=== PATIENT | female | born 1935 | race Caucasian/White ===

== ENCOUNTER 2020-02-23 16:07 | Emergency (ER) | payer OTHER ==
[~2020-02-23] VITALS: Ht 152.4 cm; Wt 58.5 kg
[~2020-02-23 16:07] MED LIST: ALBIPROI INH; ALBU90OI6 INH; ALBU90OI61 INH; ALEN35 PO; ALEN70; ARTHRITIS PAIN57 GM TOP; ASPI81CH PO; ASPI81EC; ASPI81EC PO; ATOR10; ATOR10 PO; AZIT250 PO; BECL40OI INH; BENZ100A PO; BUDE.25 INH; CALCIUM PO; CEPH500 PO; CHOL10002 PO; CIPR500 PO; CITA20 PO; CLAR500 PO; COMBIVENT RESPIM4 GM INH; Carafate; DIGO.125; DIOVAN PO; DOXA2; DOXA2 PO; Duoneb 2.5-0.5 M3 ML INH; ERGO400 PO; ERGO50000 PO; ESCI10 PO; EZET10; EZET10 PO; FAMO20 PO; FAMO40 PO; FEXO60 PO; FLUT.05NI; HYDACE25S PR; HYDACE5 PO; HYDR1TAB94 PO; IBUP600; IBUP600 PO; LAVAP17G PO; LENZAPATCH 4%-1 EACH TOP; LEVFLO500 PO; LEVSOD100; LEVSOD88 PO; LISI20 PO; MECL25 PO; MULVITA PO; Miralax17 GM PO; Multivitamin1 EAC1 PO; NITR100CA PO; ONDA8ODT MM; OXYB5; OXYB5 PO; PANT40 PO; POLY17UD PO; PRED20 PO; Perforomis20 MCG/2 M INH; Prednisone20 MG PO; QUET25 PO; QUIN325; RANI150; RXALBOI INH; RXONDA4ODT MM; SENN187 PO; SUCR1; SUCR1 PO; SUCR1SU PO; SULTRIDS PO; Senna S Tablet1 EACH PO; VALS80; VALS80 PO; VERA120ERB PO; VERA180ER; VERA180ER PO; VERA180ERB PO; VITAMIN C PO; Zithromax250 MG PO
[2020-02-23 16:46] LABS: BASOPHILS PERCENT AUTO 1 % (0-2); EOSINOPHILS ABSOLUTE AUTO 0.81 K/mm3 (0.00-0.68); EOSINOPHILS PERCENT AUTO 5 % (0-6); Hematocrit 43.4 % (33.0-51.0); Hemoglobin 13.5 g/dL (11.5-16.0); IMMATURE GRAN ABSOLUTE AUTO 0.55 K/mm3 (0.00-0.10); IMMATURE GRAN PERCENT AUTO 3 % (0-1); LYMPHOCYTES ABSOLUTE AUTO 3.17 K/mm3 (0.84-5.20); LYMPHOCYTES PERCENT AUTO 18 % (21-46); MONOCYTES ABSOLUTE AUTO 0.21 K/mm3 (0.16-1.47); MONOCYTES PERCENT AUTO 1 % (4-13); Mean Corpuscular HGB 30.7 pg (26.0-34.0); Mean Corpuscular HGB Conc 31.1 g/dL (31.5-36.5); Mean Corpuscular Volume 99 fL (80-100); NEUTROPHILS ABSOLUTE AUTO 13.17 K/mm3 (1.96-9.15); NEUTROPHILS PERCENT AUTO 73 % (41-73); Platelet Count 275 K/mm3 (150-400); RDW Coefficient Variation 13.3 % (11.7-14.2); RDW Standard Deviation 48.6 fL (35.1-46.3); White Blood Cell Count 18.01 K/mm3 (4.00-11.30)
[2020-02-23 17:13] LABS: Albumin, Blood 3.7 g/dL (3.4-5.0); Bilirubin, Total 0.3 mg/dL (0.1-1.0); Bun/Creatinine Ratio 13.7 (12.0-20.0); Calcium, Blood 8.8 mg/dL (8.5-10.1); Creatinine, Blood 0.95 mg/dL (0.40-1.00); Globulin, Blood 3.6 g/dL (2.2-4.0); Potassium, Blood 4.4 mmol/L (3.5-5.5); Total Protein, Blood 7.3 g/dL (6.4-8.2)
[2020-02-23 19:01] LABS: Source, Urine Clean Catch
[2020-02-23 19:20] LABS: Bilirubin, Urine Neg (Neg); Blood, Urine 1+ (Neg); Glucose Qualitative, Urine Neg (Neg); Ketones, Urine Neg (Neg); Leukocyte Esterase, Urine 3+ (Neg); Nitrite, Urine Neg (Neg); Protein, Urine Neg (Neg); Urobilinogen, Urine NORM (Normal)
[2020-02-23 19:27] LABS: Appearance, Urine Clear (Clear); Color, Urine Yellow (P-Yellow)
[2020-02-23 19:28] LABS: Bacteria Mod /hpf; Squamous Epithelial Cells Mod /hpf (Few); White Blood Cells, Urine 25-50 /hpf (0-5)
[2020-02-23] MEDS ORDERED: CEFD300 PO (19:39)
== END 2020-02-23 20:11 | disposition home or self-care (01) ==
LOC: ER 16:07
PROVIDERS: Emergency Medicine
DX: S00.11XA Contusion of right eyelid and periocular area, initial encounter (principal); S80.11XA Contusion of right lower leg, initial encounter; I12.9 Hypertensive chronic kidney disease with stage 1 through stage 4 chronic kidney disease, or unspecified chronic kidney disease; N18.9 Chronic kidney disease, unspecified; J44.9 Chronic obstructive pulmonary disease, unspecified; I25.10 Atherosclerotic heart disease of native coronary artery without angina pectoris; E03.9 Hypothyroidism, unspecified; F32.9 Major depressive disorder, single episode, unspecified; Z86.73 Personal history of transient ischemic attack (TIA), and cerebral infarction without residual deficits; Z95.5 Presence of coronary angioplasty implant and graft; Z88.8 Allergy status to other drugs, medicaments and biological substances; Z79.899 Other long term (current) drug therapy; Z79.82 Long term (current) use of aspirin; Z87.891 Personal history of nicotine dependence; W01.0XXA Fall on same level from slipping, tripping and stumbling without subsequent striking against object, initial encounter
CPT/HCPCS: 36415; 70450; 73590; 80053; 81001; 84484; 85025; 87086; 93005; 93010; 96374; 99284-25; J0696

== ENCOUNTER 2020-04-19 21:14 | Observation (INO) | payer OTHER ==
[~2020-04-19] VITALS: Ht 152.4 cm; Wt 53.3 kg
[~2020-04-19 21:14] MED LIST changes: +CEFD300 PO; +EUTHYROX88 MCG PO; -LAVAP17G PO; +MIRALAX17 GM PO
[2020-04-19 22:35] LABS: Hematocrit 39.2 % (33.0-51.0); Hemoglobin 12.5 g/dL (11.5-16.0); Mean Corpuscular HGB 30.8 pg (26.0-34.0); Mean Corpuscular HGB Conc 31.9 g/dL (31.5-36.5); Mean Corpuscular Volume 97 fL (80-100); Mean Platelet Volume 9.7 fL (9.1-12.4); Platelet Count 350 K/mm3 (150-400); RDW Coefficient Variation 13.6 % (11.7-14.2); RDW Standard Deviation 48.9 fL (35.1-46.3); Red Blood Cell Count 4.06 M/mm3 (3.80-5.20)
[2020-04-19 22:37] LABS: White Blood Cell Count 54.63 K/mm3 (4.00-11.30)
[2020-04-19 22:52] LABS: BAND PERCENT MAN 7 % (0-8); BASOPHILS PERCENT MAN 0 % (0-2); EOSINOPHILS ABSOLUTE MAN 1.09 K/mm3 (0.00-0.68); EOSINOPHILS PERCENT MAN 2 % (0-6); LYMPHOCYTES ABSOLUTE MAN 5.46 K/mm3 (0.84-5.20); LYMPHOCYTES PERCENT MAN 10 % (21-46); METAMYELOCYTE ABSOLUTE MAN 1.63 K/mm3 (0.00-0.00); METAMYELOCYTE PERCENT MAN 3 % (0-0); MONOCYTES PERCENT MAN 0 % (4-13); MYELOCYTE ABSOLUTE MAN 2.18 K/mm3 (0.00-0.00); MYELOCYTE PERCENT MAN 4 % (0-0); NEUTROPHILS ABSOLUTE MAN 44.25 K/mm3 (1.96-9.15); SEG NEUTROPHILS PERCENT MAN 74 % (41-73); TOTAL CELLS COUNTED 100
[2020-04-19 22:53] LABS: Alanine Aminotransfer (ALT/SGP 19 U/L (12-78); Albumin, Blood 3.5 g/dL (3.4-5.0); Albumin/Globulin Ratio 1.1 (0.8-1.8); Alk Phos 69 U/L (50-136); Anion Gap 11 mmol/L (6-16); Aspartate Aminotrans (AST/SGOT 20 U/L (12-37); Bilirubin, Total 0.4 mg/dL (0.1-1.0); Blood Urea Nitrogen 14 mg/dL (8-24); Bun/Creatinine Ratio 8.1 (12.0-20.0); CO2, Blood 24 mmol/L (21-32); Calcium, Blood 8.9 mg/dL (8.5-10.1); Chloride, Blood 102 mmol/L (98-108); Creatinine, Blood 1.72 mg/dL (0.40-1.00); Globulin, Blood 3.1 g/dL (2.2-4.0); Glomerular Filtration Rate 30 (60-); Glucose, Blood 118 mg/dL (70-99); Potassium, Blood 3.8 mmol/L (3.5-5.5); Sodium, Blood 137 mmol/L (136-145); Total Protein, Blood 6.6 g/dL (6.4-8.2)
[2020-04-19 23:33] LABS: Source, Urine Clean Catch
[2020-04-19 23:35] LABS: Bilirubin, Urine Neg (Neg); Blood, Urine Neg (Neg); Glucose Qualitative, Urine Neg (Neg); Ketones, Urine Neg (Neg); Leukocyte Esterase, Urine Neg (Neg); Nitrite, Urine Neg (Neg); Protein, Urine Neg (Neg); Urobilinogen, Urine NORM (Normal)
[2020-04-19 23:40] LABS: Appearance, Urine Clear (Clear); Color, Urine Yellow (P-Yellow)
[2020-04-20 00:11] LABS: C-REACTIVE PROTEIN, EXT RANGE <0.290 mg/dL (0.000-0.300)
[2020-04-20 01:39] LABS: International Normalized Ratio 1.08; Prothrombin Time Results 11.5 Sec (9.7-11.5)
--- NOTE | 2020-04-20 03:39 | NUR ---
PATIENT BEING ADMITTED TO THE FLOOR FOR ISCHEMIC FINGER, KIDNEY FAILURE. SHE ARRIVED VIA GURNEY, TRANSFERRED WITH SLIDING TO BED. OPAL IS ALERT AND ORIENTED X4. IROQUOIS W/ BILATERAL HEARING AIDS. SHE PLACED THEM IN HER BAG. SHE CAME INTO THE ER TONIGHT FOR PAIN IN HER LEFT PINKY FINGER. STATES IT HAS BEEN HURTING FOR 2-3 DAYS, THERE IS DISCOLORATION FROM THE SECOND KNUCKLE UP, PURPLISH RED. TENDER TO TOUCH, UNABLE TO BEND HER FINGER, THERE IS SWELLING. UPON ARRIVAL SHE WAS FOUND TO HYPOTENSIVE 74/31. AFTER HYDRATION HER BLOOD PRESSSURE CAME UP. WBC WAS 54.63, LACTIC ACID 1.1. AFEBRILE, VS WNL ONCE GOT TO THE FLOOR. LUNGS ARE CLEAR. HR REGULAR SINUS WITH BBB RUNNING IN 60'S PER TELEMETRY. SKIN PWD, NO BREAKDOWN. BM YESTERDAY. STATES BEEN URINATING WELL. NO UTI. IV FLUIDS RUNNING AT 75ML/HR. HEPARIN RUNNING 13.3ML/HR. ORIENTED TO ROOM AND CALL LIGHT. ADMISSION COMPLETED. WILL CONTINUE TO MONITOR.
--- NOTE | 2020-04-20 05:28 | NUR ---
SHIFT SUMMARY: MAYELIN WAS ADMITTED FOR RENAL FAILURE AND ISCHEMIC FINGER. AOX3, COOPERATIVE. 1 ASSIST WITH WALKER. LEFT PINKY FINGER SWOLLEN AND PURPLE BLUE FROM KNUCKLE AND UP. NO NUMBNESS. NOT ABLE TO BEND. PAIN MANAGEABLE. LS CLEAR T/O. HR SINUS W/ BBB RUNNING IN THE 60'S PER TELE. IV FLUIDS RUNNING AT 75ML/HR. CONTIENT OF URINE AND BOWEL. LAST BM YESTERDAY. LABS: CRITIAL WBC ON ADMIT 54.63, LACTIC 1.1; GFR 30, BUN/CREATINE 8.1; CREATINE 1.72. HEPARIN INFUSING AT 13.3ML/HR FOR POSSIBLE BLOOD CLOT. SETTLED INTO ROOM, SLEPT REST OF SHIFT. WILL CONTINUE TO PROVIDE CARE TILL DAY SHIFT ARRIVES.
[2020-04-20 08:29] LABS: Hematocrit 34.1 % (33.0-51.0); Hemoglobin 10.9 g/dL (11.5-16.0); Mean Corpuscular Volume 97 fL (80-100); Mean Platelet Volume 9.8 fL (9.1-12.4); Platelet Count 298 K/mm3 (150-400); RDW Coefficient Variation 13.8 % (11.7-14.2); RDW Standard Deviation 49.1 fL (35.1-46.3); Red Blood Cell Count 3.52 M/mm3 (3.80-5.20)
[2020-04-20 08:38] LABS: White Blood Cell Count 56.34 K/mm3 (4.00-11.30)
[2020-04-20 09:27] LABS: BAND PERCENT MAN 5 % (0-8); BASOPHILS PERCENT MAN 0 % (0-2); EOSINOPHILS ABSOLUTE MAN 1.12 K/mm3 (0.00-0.68); EOSINOPHILS PERCENT MAN 2 % (0-6); LYMPHOCYTES ABSOLUTE MAN 5.07 K/mm3 (0.84-5.20); LYMPHOCYTES PERCENT MAN 9 % (21-46); METAMYELOCYTE ABSOLUTE MAN 1.12 K/mm3 (0.00-0.00); METAMYELOCYTE PERCENT MAN 2 % (0-0); MONOCYTES ABSOLUTE MAN 0.56 K/mm3 (0.16-1.47); MONOCYTES PERCENT MAN 1 % (4-13); MYELOCYTE ABSOLUTE MAN 2.25 K/mm3 (0.00-0.00); MYELOCYTE PERCENT MAN 4 % (0-0); NEUTROPHILS ABSOLUTE MAN 46.19 K/mm3 (1.96-9.15); SEG NEUTROPHILS PERCENT MAN 77 % (41-73); TOTAL CELLS COUNTED 100
--- NOTE | 2020-04-20 11:08 | NUR ---
Echocardiogram completed.
[2020-04-20 11:16] LABS: Hematocrit 35.1 % (33.0-51.0); Hemoglobin 11.2 g/dL (11.5-16.0); Mean Corpuscular HGB 31.1 pg (26.0-34.0); Mean Corpuscular HGB Conc 31.9 g/dL (31.5-36.5); Mean Corpuscular Volume 98 fL (80-100); Mean Platelet Volume 9.7 fL (9.1-12.4); Platelet Count 298 K/mm3 (150-400); RDW Coefficient Variation 13.5 % (11.7-14.2); RDW Standard Deviation 48.9 fL (35.1-46.3)
[2020-04-20 11:26] LABS: White Blood Cell Count 55.18 K/mm3 (4.00-11.30)
[2020-04-20 11:33] LABS: Albumin, Blood 2.9 g/dL (3.4-5.0); Bilirubin, Total 0.3 mg/dL (0.1-1.0); Bun/Creatinine Ratio 9.3 (12.0-20.0); Calcium, Blood 8.3 mg/dL (8.5-10.1); Creatinine, Blood 1.4 mg/dL (0.40-1.00); Globulin, Blood 2.9 g/dL (2.2-4.0); Total Protein, Blood 5.8 g/dL (6.4-8.2)
[2020-04-20 12:06] LABS: BAND PERCENT MAN 7 % (0-8); BASOPHILS PERCENT MAN 0 % (0-2); EOSINOPHILS ABSOLUTE MAN 0.55 K/mm3 (0.00-0.68); EOSINOPHILS PERCENT MAN 1 % (0-6); LYMPHOCYTES ABSOLUTE MAN 1.65 K/mm3 (0.84-5.20); LYMPHOCYTES PERCENT MAN 3 % (21-46); METAMYELOCYTE ABSOLUTE MAN 1.65 K/mm3 (0.00-0.00); METAMYELOCYTE PERCENT MAN 3 % (0-0); MONOCYTES PERCENT MAN 0 % (4-13); MYELOCYTE PERCENT MAN 2 % (0-0); NEUTROPHILS ABSOLUTE MAN 50.21 K/mm3 (1.96-9.15); SEG NEUTROPHILS PERCENT MAN 84 % (41-73); TOTAL CELLS COUNTED 100
--- NOTE | 2020-04-20 12:29 | NUR ---
Patient is lying in bed and alert. Patient tells me about her family, her caridad (patient attend [facility]) and about her medical history. Patient tells me that she just wants to get well quickly because she wants to go home (patient lives with her son, Hussein). Patient shows no evidnce of spiritual distress. I listen empathically and provide pastoral career and guidance counselor and prayer. Patient responds well and shows signs of an elevated mood. I will continue to remain available to patient and family.
--- NOTE | 2020-04-20 17:54 | NUR ---
PATIENT A/OX4, UP WITH SBA TO RESTROOM. SWELLING AND PAIN TO L PINKY FINGER HAS IMPROVED THIS SHIFT. NS HAS BEEN D/C'D. CONTINUES ON HEPARIN GTT, NO ADJUSTMENTS NEEDED THIS SHIFT. VSS, ON RA. ECHO COMPLETED TODAY, EF OF 60-65%. US OF L HAND DID NOT SHOW AN ABCESS. SPOKE WITH CAREGIVER FEDERICO AND UPDATED ON PATIENT CONDITION. PATIENT TOLERATING REGULAR DIET. CALM AND COOPERATIVE WITH CARE.
[2020-04-21 05:03] LABS: Hemoglobin 11.2 g/dL (11.5-16.0); Mean Corpuscular Volume 97 fL (80-100); Platelet Count 316 K/mm3 (150-400); RDW Coefficient Variation 13.8 % (11.7-14.2); RDW Standard Deviation 49.5 fL (35.1-46.3); Red Blood Cell Count 3.61 M/mm3 (3.80-5.20)
[2020-04-21 05:21] LABS: White Blood Cell Count 53.23 K/mm3 (4.00-11.30)
[2020-04-21 05:34] LABS: Bun/Creatinine Ratio 9.8 (12.0-20.0); Calcium, Blood 8.7 mg/dL (8.5-10.1); Creatinine, Blood 1.32 mg/dL (0.40-1.00); Potassium, Blood 4.1 mmol/L (3.5-5.5)
[2020-04-21 05:40] LABS: BAND PERCENT MAN 6 % (0-8); BASOPHILS PERCENT MAN 0 % (0-2); EOSINOPHILS ABSOLUTE MAN 1.06 K/mm3 (0.00-0.68); EOSINOPHILS PERCENT MAN 2 % (0-6); LYMPHOCYTES ABSOLUTE MAN 3.72 K/mm3 (0.84-5.20); LYMPHOCYTES PERCENT MAN 7 % (21-46); METAMYELOCYTE ABSOLUTE MAN 2.12 K/mm3 (0.00-0.00); METAMYELOCYTE PERCENT MAN 4 % (0-0); MONOCYTES ABSOLUTE MAN 0.53 K/mm3 (0.16-1.47); MONOCYTES PERCENT MAN 1 % (4-13); MYELOCYTE ABSOLUTE MAN 1.06 K/mm3 (0.00-0.00); MYELOCYTE PERCENT MAN 2 % (0-0); NEUTROPHILS ABSOLUTE MAN 44.71 K/mm3 (1.96-9.15); SEG NEUTROPHILS PERCENT MAN 78 % (41-73); TOTAL CELLS COUNTED 100
--- NOTE | 2020-04-21 06:01 | NUR ---
SHIFT SUMMARY PT IS AN 85 Y/O FEMALE, ADMITTED FOR AN ISCHEMIC L PINKY FINGER. PT IS A&O X 3, PLEASANT AND COOPERATIVE WITH CARE. VERY [place]. 1 PERSON SBA TO THE BATHROOM. L PINKY FINGER IS SWOLLEN, BUT LESS PURPLE AND LESS PAINFUL/TENDER PER PT REPORT. NO COMPLAINTS OF OTHER PAIN, NAUSEA OR SOB. PT RECEIVING CONTINUOUS HEPARIN DRIP, CURRENTLY AT 12.5 U/KG/HR, OR 12.8 ML/HR. VITAL SIGNS STABLE. PT SLEPT WELL THROUGH THE NIGHT. NO ACUTE CHANGES IN PT CONDITION NOTED. WILL CONTINUE TO MONITOR AND TREAT PER EMAR UNTIL HAND OFF TO DAY SHIFT RN.
[2020-04-21] MEDS ORDERED: AZIT250 PO (11:20)
[2020-04-21] MEDS ORDERED: Culturelle1 CAP PO (11:21)
[2020-04-21] MEDS ORDERED: CEFP200 PO (11:21)
[2020-04-21] MEDS ORDERED: ALLO100 PO (11:22)
[2020-04-21] MEDS ORDERED: COLCHICINE0.6 MG PO (11:23)
== END 2020-04-21 13:45 | disposition home or self-care (01) ==
LOC: ER 21:14 → MEDS 21:15
PROVIDERS: Internal Medicine; Physician Assistant; ADMIT Internal Medicine
DX: M79.645 Pain in left finger(s) (principal); D72.829 Elevated white blood cell count, unspecified; N17.9 Acute kidney failure, unspecified; I12.9 Hypertensive chronic kidney disease with stage 1 through stage 4 chronic kidney disease, or unspecified chronic kidney disease; N18.4 Chronic kidney disease, stage 4 (severe); I25.10 Atherosclerotic heart disease of native coronary artery without angina pectoris; E03.9 Hypothyroidism, unspecified; H91.90 Unspecified hearing loss, unspecified ear; J44.9 Chronic obstructive pulmonary disease, unspecified; F32.9 Major depressive disorder, single episode, unspecified; Z79.82 Long term (current) use of aspirin; Z79.899 Other long term (current) drug therapy; Z88.8 Allergy status to other drugs, medicaments and biological substances
CPT/HCPCS: 36415; 51701; 71045; 73140; 76882; 80048; 80053; 81003; 83605; 84145; 84550; 85025; 85610; 85651; 85730; 86140; 93005; 93010; 93306; 93931; 94640; 94760; 96361; 96365-59; 96367; 96375; 96375-59; 96376; 99285-25; A9270; A9270-GY; G0378; J0690; J1644; J2543; J3010; J7030

== ENCOUNTER 2020-08-13 12:20 | Emergency (ER) | payer OTHER ==
[~2020-08-13] VITALS: Ht 152.4 cm; Wt 53.5 kg
[~2020-08-13 12:20] MED LIST changes: +ALLO100 PO; +CEFP200 PO; +COLCHICINE0.6 MG PO; +Culturelle1 CAP PO
== END 2020-08-13 14:10 | disposition home or self-care (01) ==
LOC: ER 12:20
DX: K59.00 Constipation, unspecified (principal); J44.9 Chronic obstructive pulmonary disease, unspecified; I12.9 Hypertensive chronic kidney disease with stage 1 through stage 4 chronic kidney disease, or unspecified chronic kidney disease; N18.3 Chronic kidney disease, stage 3 (moderate); I25.10 Atherosclerotic heart disease of native coronary artery without angina pectoris; E03.9 Hypothyroidism, unspecified; F32.9 Major depressive disorder, single episode, unspecified; Z88.8 Allergy status to other drugs, medicaments and biological substances; Z79.899 Other long term (current) drug therapy; Z79.82 Long term (current) use of aspirin; Z79.51 Long term (current) use of inhaled steroids; Z87.891 Personal history of nicotine dependence
CPT/HCPCS: 99283

== ENCOUNTER 2020-08-23 09:57 | Observation (INO) | payer OTHER ==
[~2020-08-23] VITALS: Ht 152.4 cm; Wt 53.7 kg
[~2020-08-23 09:57] MED LIST changes: -ASPI81CH PO; +Aspirin EC81 MG PO; +DOCUZEN 8.6-501 EACH PO; -Senna S Tablet1 EACH PO
[2020-08-23 10:23] LABS: BASOPHILS PERCENT AUTO 1 % (0-2); EOSINOPHILS ABSOLUTE AUTO 0.54 K/mm3 (0.00-0.68); EOSINOPHILS PERCENT AUTO 6 % (0-6); Hematocrit 33.9 % (33.0-51.0); Hemoglobin 10.7 g/dL (11.5-16.0); IMMATURE GRAN ABSOLUTE AUTO 0.51 K/mm3 (0.00-0.10); IMMATURE GRAN PERCENT AUTO 6 % (0-1); LYMPHOCYTES ABSOLUTE AUTO 1.47 K/mm3 (0.84-5.20); LYMPHOCYTES PERCENT AUTO 17 % (21-46); MONOCYTES PERCENT AUTO 3 % (4-13); Mean Corpuscular HGB 33.1 pg (26.0-34.0); Mean Corpuscular HGB Conc 31.6 g/dL (31.5-36.5); Mean Corpuscular Volume 105 fL (80-100); Mean Platelet Volume 10.7 fL (9.1-12.4); NEUTROPHILS ABSOLUTE AUTO 5.99 K/mm3 (1.96-9.15); NEUTROPHILS PERCENT AUTO 67 % (41-73); Platelet Count 92 K/mm3 (150-400); RDW Coefficient Variation 22.9 % (11.7-14.2); RDW Standard Deviation 79.6 fL (35.1-46.3); Red Blood Cell Count 3.23 M/mm3 (3.80-5.20); White Blood Cell Count 8.91 K/mm3 (4.00-11.30)
[2020-08-23] MEDS ORDERED: FAMO20 PO ×2 (10:25→13:29)
[2020-08-23] MEDS ORDERED: OMEP20ER PO (10:26)
[2020-08-23] MEDS ORDERED: Hydroxyurea500 MG PO (10:27)
[2020-08-23 10:34] LABS: International Normalized Ratio 1.06; Prothrombin Time Results 11.3 Sec (9.7-11.5)
[2020-08-23 10:37] LABS: Albumin, Blood 3.8 g/dL (3.4-5.0); Albumin/Globulin Ratio 1.4 (0.8-1.8); Bilirubin, Total 0.6 mg/dL (0.1-1.0); Bun/Creatinine Ratio 16.8 (12.0-20.0); Calcium, Blood 8.4 mg/dL (8.5-10.1); Creatinine, Blood 1.13 mg/dL (0.40-1.00); Globulin, Blood 2.8 g/dL (2.2-4.0); Potassium, Blood 4.3 mmol/L (3.5-5.5); Total Protein, Blood 6.6 g/dL (6.4-8.2)
[2020-08-23] MEDS ORDERED: Citalopram HBr20 MG PO (13:31)
--- NOTE | 2020-08-23 16:22 | NUR ---
PATIENT ARRIVED TO ROOM 301 WITH 2 IV SITES, LFA AND LW, BOTH SALINE LOCKED.
--- NOTE | 2020-08-23 17:28 | NUR ---
SHE IS BEING ADMITTED TO ROOM 301 FROM THE ED. HER CAREGIVER FEDERICO CALLED TO SAY SHE IS ON HER WAY BACK IN WITH HER HEARING AIDES, DENTURES AND MEDICATION LIST. WILL SEE WHEN SHE ARRIVES. THE PATIENT HAS BEEN COMFORTABLE DENYING ANY PAIN TO ME BUT TOLD THAT SHE HAD DISCOMFORT IN BOTH RIGHT AND LEFT LOWER QUADRANTS. SHE DISCUSSED THE CONSTIPATION THAT THE CT SCAN SHOWED AND DISCUSSED HER HEMRRHOIDS WITH HER AFTER DOING A RECTAL EXAM. THERE WAS BLOOD ON HER FEDERICA LINER AND SHE HAD PASSED A SMALL AMT OF RED BLOOD IN THE TOILET WHEN SHE GOT UP TO VOID. HER URINE IS HAZY YELLOW. NEW PULL UP WITH LINER PUT ON PATIENT AFTER CLEANING HER RECTUM. SHE NOW HAS WATER AND PEPSI AT THE BEDSIDE. A FL DINNER HAS BEEN ORDERED. TELE IS NSR. VSS. SBP 157. SHE IS VERY MOBILE NO NEED FOR THE BED ALARM.
[2020-08-23] MEDS ORDERED: ASPI81CH PO (18:18)
[2020-08-23] MEDS ORDERED: BUDESONIDE0.5 MG/2 M INH (18:21)
[2020-08-23] MEDS ORDERED: PERFORMIST INH (18:32)
[2020-08-23] MEDS ORDERED: COMBIVENT RESPIM4 G1 INH (18:34)
[2020-08-23] MEDS ORDERED: IPRAT-ALBUT 0.5-3 ML INH (18:36)
[2020-08-23 21:24] LABS: Hematocrit 30.7 % (33.0-51.0); Hemoglobin 9.5 g/dL (11.5-16.0)
[2020-08-24 05:02] LABS: Hematocrit 30.7 % (33.0-51.0); Hemoglobin 9.5 g/dL (11.5-16.0); Mean Corpuscular HGB 33.2 pg (26.0-34.0); Mean Corpuscular HGB Conc 30.9 g/dL (31.5-36.5); Mean Corpuscular Volume 107 fL (80-100); RDW Coefficient Variation 23.6 % (11.7-14.2); RDW Standard Deviation 83.2 fL (35.1-46.3); Red Blood Cell Count 2.86 M/mm3 (3.80-5.20); White Blood Cell Count 9.41 K/mm3 (4.00-11.30)
[2020-08-24 05:12] LABS: Mean Platelet Volume 10.8 fL (9.1-12.4); Platelet Count 75 K/mm3 (150-400)
--- NOTE | 2020-08-24 05:55 | NUR ---
SHIFT SUMMARY PT COMPLAINED OF SLIGHT CRAMPING IN RIGHT THIGH WHEN CHANGING POSTION. K-PAD APPLIED AND MEDICATED FOR PAIN PER MAR. OTHERWISE NO ACUTE CHANGES THIS SHIFT. PT IS A&O X4, SBA. SLEPT T/O NIGHT. PT IS LAYING IN BED, NO APPARENT DISTRESS, RESPIRATIONS EVEN AND UNLABORED, EYES CLOSED. CALL LIGHT AND PERSONAL ITEMS WITHIN REACH. NO APPARENT NEEDS AT THIS TIME. WILL CONTINUE TO MONITOR UNTIL REPORT GIVEN TO DAY RN.
[2020-08-24 06:30] LABS: BAND PERCENT MAN 4 % (0-8); BASOPHILS PERCENT MAN 0 % (0-2); EOSINOPHILS ABSOLUTE MAN 0.56 K/mm3 (0.00-0.68); EOSINOPHILS PERCENT MAN 6 % (0-6); LYMPHOCYTES ABSOLUTE MAN 1.22 K/mm3 (0.84-5.20); LYMPHOCYTES PERCENT MAN 13 % (21-46); METAMYELOCYTE ABSOLUTE MAN 0.28 K/mm3 (0.00-0.00); METAMYELOCYTE PERCENT MAN 3 % (0-0); MONOCYTES ABSOLUTE MAN 0.09 K/mm3 (0.16-1.47); MONOCYTES PERCENT MAN 1 % (4-13); NEUTROPHILS ABSOLUTE MAN 7.24 K/mm3 (1.96-9.15); SEG NEUTROPHILS PERCENT MAN 73 % (41-73); TOTAL CELLS COUNTED 100
--- NOTE | 2020-08-24 15:35 | NUR ---
Patientis sitting up in bed and alert. Patient tells me about her medical issues and that she is not sure what is being done for her. She talks about her large family that lives local and about her Yazdanism caridad background and how important that both her family and caridad are to her. I listen emapthically and provide prayer. Patient started falling asleep during her own sentences so I cut my visit short and let her rest. I will continue to remain available to patient and family.
--- NOTE | 2020-08-24 16:09 | NUR ---
SHE HAD A MILD H/A THIS MORNING. SHE C/O FEELING TIRED THIS AFTERNOON. SHE SAT UP IN THE CHAIR FOR A FEW HRS MIDDAY. SHE IS IN BED NOW. HER CAREGIVER FEDERICO IS HERE VISITING HER NOW.
--- NOTE | 2020-08-24 17:57 | NUR ---
NO RECTAL BLEEDING TODAY. ANNUSOL SUPP GIVEN SECHEDULED AND MIRALAX GIVEN THIS AM. SHE HAD A SOFT BM. DIET ADVANCED AT DINNER TONIGHT TO SOFT. NO C/O ABD PAIN OR NAUSEA. SEED LABORATORY ASSISTANT GOT HER A PCP TODAY. MAYELIN HAS THE PAPERS WITH THE INFORMATION. HER CAREGIVER VISITED THIS AFTERNOON. HER 2 COMPLAINTS TODAY WERE A MILD H/A THIS AM AND FEELING TIRED THIS AFTERNOON.
--- NOTE | 2020-08-24 19:09 | NUR ---
SHE DRIPPED A SMALL AMT OF RECTAL BLOOD AFTER DINNER TONIGHT WHEN STANDING UP AFTER VOIDING.
[2020-08-25 04:44] LABS: Hematocrit 28.9 % (33.0-51.0); Hemoglobin 9.3 g/dL (11.5-16.0); Mean Corpuscular HGB 34.1 pg (26.0-34.0); Mean Corpuscular HGB Conc 32.2 g/dL (31.5-36.5); Mean Corpuscular Volume 106 fL (80-100); Mean Platelet Volume 10.7 fL (9.1-12.4); Platelet Count 71 K/mm3 (150-400); RDW Coefficient Variation 23.5 % (11.7-14.2); RDW Standard Deviation 80.2 fL (35.1-46.3); Red Blood Cell Count 2.73 M/mm3 (3.80-5.20); White Blood Cell Count 10.44 K/mm3 (4.00-11.30)
--- NOTE | 2020-08-25 04:47 | NUR ---
SHIFT SUMMARY NO ACUTE CHANGES THIS SHIFT. PT ASKED TO HAVE SCDS OFF DURING NIGHT IT HELPS HER SLEEP BETTER. SLEPT T/O THE NIGHT. NO RECTAL BLEEDING THIS SHIFT. PT IS LAYING IN BED WITH EYES CLOSED, EVEN AND UNLABORED RESPIRATIONS. NO APPARENT NEEDS OR DISTRESS AT THIS TIME. CALL LIGHT AND PERSONAL ITEMS WITHIN REACH. WILL CONTINUE TO MONITOR UNTIL REPORT GIVEN TO DAY RN.
[2020-08-25 06:45] LABS: BAND PERCENT MAN 1 % (0-8); BASOPHILS PERCENT MAN 1 % (0-2); EOSINOPHILS PERCENT MAN 2 % (0-6); LYMPHOCYTES ABSOLUTE MAN 0.62 K/mm3 (0.84-5.20); LYMPHOCYTES PERCENT MAN 6 % (21-46); METAMYELOCYTE PERCENT MAN 1 % (0-0); MONOCYTES PERCENT MAN 1 % (4-13); NEUTROPHILS ABSOLUTE MAN 9.29 K/mm3 (1.96-9.15); SEG NEUTROPHILS PERCENT MAN 88 % (41-73); TOTAL CELLS COUNTED 100
--- NOTE | 2020-08-25 07:40 | NUR ---
PT PLEASANT COOP A/O. QUITE [place]. DENIES PAIN. H/R REG, NO MURMER NOTED. NO TELE. LUNGS CLEAR, RESP EASY, UNHLABORED. ON R/A. BT X4 LAST BM YEST. VOIDS INDEPENDANT TO SBA TO BATHROOMN. BED IN LOW POSITION, CALL LITE IN REACH, CALLS APPROP. STATES NO BLEEDING TODAY. BELEIVES TO BE HEMORRHOIDS
[2020-08-25] MEDS ORDERED: FORADIL AEROLIZER (15:36)
--- NOTE | 2020-08-25 16:37 | NUR ---
PT DISCHARGE REVIEWED BY PT AND HER BLOCK HACKER, FEDERICO. IV X2 PULLED INTACT. NO TELE. PT DRESSED WITH ASST OF AIDE. BLOCK HACKER VERBALIZED UNDERSTANDING MEDS AND INST. 1630 PT WHEELED TO DOOR BY AIDE.
== END 2020-08-25 16:34 | disposition home or self-care (01) ==
LOC: ER 09:57 → MEDS 09:58
PROVIDERS: Emergency Medicine; ADMIT Internal Medicine
PROC: 30233N1 Transfusion of Nonautologous Red Blood Cells into Peripheral Vein, Percutaneous Approach (ICD-10-PCS; principal; 2020-08-23)
DX: K62.5 Hemorrhage of anus and rectum (principal); K59.09 Other constipation; I12.9 Hypertensive chronic kidney disease with stage 1 through stage 4 chronic kidney disease, or unspecified chronic kidney disease; N18.30 Chronic kidney disease, stage 3 unspecified; D63.1 Anemia in chronic kidney disease; K21.9 Gastro-esophageal reflux disease without esophagitis; C91.10 Chronic lymphocytic leukemia of B-cell type not having achieved remission; E03.9 Hypothyroidism, unspecified; J44.9 Chronic obstructive pulmonary disease, unspecified; I25.10 Atherosclerotic heart disease of native coronary artery without angina pectoris; F32.9 Major depressive disorder, single episode, unspecified; H91.90 Unspecified hearing loss, unspecified ear; Z87.11 Personal history of peptic ulcer disease; I47.1 Supraventricular tachycardia; Z88.8 Allergy status to other drugs, medicaments and biological substances; Z79.82 Long term (current) use of aspirin; Z79.899 Other long term (current) drug therapy; Z98.51 Tubal ligation status; Z87.891 Personal history of nicotine dependence; Z95.5 Presence of coronary angioplasty implant and graft; Z23 Encounter for immunization
CPT/HCPCS: 36415; 74177; 80053; 85014; 85018; 85025; 85610; 85730; 86850; 86900; 86901; 93005; 93010; 94640; 94760; 96361; 96374; 99285-25; A9270; C9113; G0008; G0378; J7030; Q2038; Q9967

== ENCOUNTER 2020-09-28 17:12 | Emergency (ER) | payer OTHER ==
[~2020-09-28] VITALS: Ht 157.5 cm; Wt 61.2 kg
[~2020-09-28 17:12] MED LIST changes: +ASPI81CH PO; +BUDESONIDE0.5 MG/2 M INH; +COMBIVENT RESPIM4 G1 INH; -EUTHYROX88 MCG PO; +FORADIL AEROLIZER; -HYDR1TAB94 PO; +IPRAT-ALBUT 0.5-3 ML INH; +PERFORMIST INH; -VERA120ERB PO
[2020-09-28 18:06] LABS: Hematocrit 23.3 % (33.0-51.0); Hemoglobin 7.7 g/dL (11.5-16.0); Mean Corpuscular HGB 38.7 pg (26.0-34.0); Mean Corpuscular Volume 117 fL (80-100); Mean Platelet Volume 12.2 fL (9.1-12.4); RDW Coefficient Variation 22.3 % (11.7-14.2); Red Blood Cell Count 1.99 M/mm3 (3.80-5.20); White Blood Cell Count 1.52 K/mm3 (4.00-11.30)
[2020-09-28 18:16] LABS: Platelet Count 4 K/mm3 (150-400)
[2020-09-28 18:22] LABS: Albumin, Blood 3.9 g/dL (3.4-5.0); Albumin/Globulin Ratio 1.4 (0.8-1.8); Bilirubin, Total 0.7 mg/dL (0.1-1.0); Bun/Creatinine Ratio 20.4 (12.0-20.0); Calcium, Blood 8.5 mg/dL (8.5-10.1); Creatinine, Blood 1.03 mg/dL (0.40-1.00); Globulin, Blood 2.8 g/dL (2.2-4.0); Total Protein, Blood 6.7 g/dL (6.4-8.2)
[2020-09-28 18:46] LABS: BASOPHILS ABSOLUTE MAN 0.01 K/mm3 (0.00-0.23); BASOPHILS PERCENT MAN 1 % (0-2); EOSINOPHILS ABSOLUTE MAN 0.04 K/mm3 (0.00-0.68); EOSINOPHILS PERCENT MAN 3 % (0-6); LYMPHOCYTES % ATYPICAL MANUAL 2 % (0-0); LYMPHOCYTES ABSOLUTE MAN 0.76 K/mm3 (0.84-5.20); LYMPHOCYTES PERCENT MAN 48 % (21-46); MONOCYTES PERCENT MAN 0 % (4-13); NEUTROPHILS ABSOLUTE MAN 0.69 K/mm3 (1.96-9.15); SEG NEUTROPHILS PERCENT MAN 46 % (41-73); TOTAL CELLS COUNTED 100
== END 2020-09-28 21:11 | disposition home or self-care (01) ==
LOC: ER 17:12
PROVIDERS: Emergency Medicine
DX: D61.818 Other pancytopenia (principal); D69.6 Thrombocytopenia, unspecified; I10 Essential (primary) hypertension; J45.909 Unspecified asthma, uncomplicated; Z79.899 Other long term (current) drug therapy; Z79.82 Long term (current) use of aspirin; Z95.5 Presence of coronary angioplasty implant and graft; Z86.73 Personal history of transient ischemic attack (TIA), and cerebral infarction without residual deficits; Z88.8 Allergy status to other drugs, medicaments and biological substances; Z87.891 Personal history of nicotine dependence; Z79.51 Long term (current) use of inhaled steroids
CPT/HCPCS: 36430; 80053; 85025; 86900; 86901; 99283-25; P9035

== ENCOUNTER 2020-10-03 19:29 | Inpatient (IN) | payer OTHER ==
[~2020-10-03] VITALS: Ht 160 cm; Wt 61.2 kg
[2020-10-03 20:38] LABS: Mean Corpuscular HGB 37.7 pg (26.0-34.0); Mean Corpuscular HGB Conc 31.6 g/dL (31.5-36.5); Mean Corpuscular Volume 119 fL (80-100); RDW Coefficient Variation 22.5 % (11.7-14.2); RDW Standard Deviation 89.2 fL (35.1-46.3); Red Blood Cell Count 1.46 M/mm3 (3.80-5.20); White Blood Cell Count 2.27 K/mm3 (4.00-11.30)
[2020-10-03 20:44] LABS: Hematocrit 17.4 % (33.0-51.0); Hemoglobin 5.5 g/dL (11.5-16.0); Platelet Count 5 K/mm3 (150-400)
[2020-10-03 20:48] LABS: Albumin, Blood 3.4 g/dL (3.4-5.0); Albumin/Globulin Ratio 1.2 (0.8-1.8); Bun/Creatinine Ratio 19.6 (12.0-20.0); Calcium, Blood 8.3 mg/dL (8.5-10.1); Creatinine, Blood 1.68 mg/dL (0.40-1.00); Globulin, Blood 2.8 g/dL (2.2-4.0); Potassium, Blood 5.5 mmol/L (3.5-5.5); Total Protein, Blood 6.2 g/dL (6.4-8.2)
[2020-10-03 21:12] LABS: BASOPHILS PERCENT MAN 0 % (0-2); EOSINOPHILS PERCENT MAN 0 % (0-6); LYMPHOCYTES ABSOLUTE MAN 0.72 K/mm3 (0.84-5.20); LYMPHOCYTES PERCENT MAN 32 % (21-46); MONOCYTES ABSOLUTE MAN 0.11 K/mm3 (0.16-1.47); MONOCYTES PERCENT MAN 5 % (4-13); NEUTROPHILS ABSOLUTE MAN 1.43 K/mm3 (1.96-9.15); SEG NEUTROPHILS PERCENT MAN 63 % (41-73); TOTAL CELLS COUNTED 100
[2020-10-03] MEDS ORDERED: Hydroxyurea500 MG PO (22:34)
[2020-10-03] MEDS ORDERED: HYDR1TAB94 PO (22:35)
[2020-10-03] MEDS ORDERED: ACID-PEP20 MG PO (22:37)
[2020-10-03] MEDS ORDERED: EUTHYROX88 MCG PO (22:38)
[2020-10-03] MEDS ORDERED: OMEP20ER PO (22:38)
[2020-10-03] MEDS ORDERED: QUET25 PO (22:38)
[2020-10-03] MEDS ORDERED: OXYB5 PO (22:39)
[2020-10-03] MEDS ORDERED: [UNRECOGNIZED DRUG - OTHER] NEB (22:41)
[2020-10-03] MEDS ORDERED: Citalopram HBr20 MG PO (22:42)
[2020-10-03] MEDS ORDERED: PRINIVIL10 MG PO (22:42)
[2020-10-03] MEDS ORDERED: VERAPAMIL ER120 M1 PO (22:43)
--- NOTE | 2020-10-03 23:50 | NUR ---
PT. ARRIVAL TO ICU 16 VIA GURNEY. PT AWAKE AND ALERT ANSWERING QUESTIONS APPROPRIATELY. VERY [place]. PRBC'S INFUSING TO RIGHT AC UPON ARRIVAL. SITE APPEARS INTACT NO INFILTRATION. LUNG SOUNDS CLEAR AT THIS TIME. PT ATTEMPTS TO TRANSFER SELF FROM BED TO [facility]. BECOMES SOB UPON EXERTION. SPO2 MAINTAINED > 92%. ABD SOFT NONDISTENDED WITH GOOD BOWEL TONE. PT MOVES ALL EXTREMITIES EQUALLY.
[2020-10-04 03:13] LABS: Adenovirus Not Detected (NOT DETECT); Bordetella pertussis Not Detected (NOT DETECT); Chlamydophila pneumoniae Not Detected (NOT DETECT); Coronavirus 229E Not Detected (NOT DETECT); Coronavirus HKU1 Not Detected (NOT DETECT); Coronavirus NL63 Not Detected (NOT DETECT); Coronavirus OC43 Not Detected (NOT DETECT); Human Metapneumovirus Not Detected (NOT DETECT); Human Rhinovirus/Enterovirus Not Detected (NOT DETECT); Influenza A/2009-H1 Not Detected (NOT DETECT); Influenza A/H1 Not Detected (NOT DETECT); Influenza A/H3 Not Detected (NOT DETECT); Influenza B Not Detected (NOT DETECT); Mycoplasma pneumoniae Not Detected (NOT DETECT); Parainfluenza Virus 1 Not Detected (NOT DETECT); Parainfluenza Virus 2 Not Detected (NOT DETECT); Parainfluenza Virus 3 Not Detected (NOT DETECT); Parainfluenza Virus 4 Not Detected (NOT DETECT); Respiratory Syncytial Virus Not Detected (NOT DETECT); SARS-Cov-2 (COVID-19), BioFire Not Detected (NOT DETECT)
--- NOTE | 2020-10-04 03:50 | NUR ---
PRBC TRANSFUSION COMPLETE. NO ADVERSE REACTION.
--- NOTE | 2020-10-04 06:17 | NUR ---
TRANSFUSIONS COMPLETE, AWAITING AM LABS. PT SLEEPING AT TIMES BUT EASLIY AROUSABLE. NO SOB, LUNGS CLEAR. PT. VERY [place] BUT A&OX4. PT. TAKING PO FLUIDS WELL AND ABLE TO TRANSFER TO BSC WITH MINIMAL ASSIST.
[2020-10-04 06:41] LABS: BASOPHILS PERCENT AUTO 0 % (0-2); EOSINOPHILS ABSOLUTE AUTO 0.01 K/mm3 (0.00-0.68); EOSINOPHILS PERCENT AUTO 1 % (0-6); Hemoglobin 6.9 g/dL (11.5-16.0); IMMATURE GRAN ABSOLUTE AUTO 0.01 K/mm3 (0.00-0.10); IMMATURE GRAN PERCENT AUTO 1 % (0-1); LYMPHOCYTES ABSOLUTE AUTO 0.38 K/mm3 (0.84-5.20); LYMPHOCYTES PERCENT AUTO 27 % (21-46); MONOCYTES ABSOLUTE AUTO 0.07 K/mm3 (0.16-1.47); MONOCYTES PERCENT AUTO 5 % (4-13); Mean Platelet Volume 9.1 fL (9.1-12.4); NEUTROPHILS ABSOLUTE AUTO 0.95 K/mm3 (1.96-9.15); NEUTROPHILS PERCENT AUTO 67 % (41-73); White Blood Cell Count 1.42 K/mm3 (4.00-11.30)
[2020-10-04 06:49] LABS: Source, Urine Clean Catch
[2020-10-04 06:52] LABS: Appearance, Urine Clear (Clear); Bilirubin, Urine Neg (Neg); Blood, Urine 1+ (Neg); Color, Urine Yellow (P-Yellow); Glucose Qualitative, Urine Neg (Neg); Ketones, Urine Neg (Neg); Leukocyte Esterase, Urine 1+ (Neg); Nitrite, Urine Neg (Neg); Protein, Urine 1+ (Neg); Urobilinogen, Urine NORM (Normal)
[2020-10-04 06:54] LABS: Calcium, Blood 8.1 mg/dL (8.5-10.1); Creatinine, Blood 1.52 mg/dL (0.40-1.00); Potassium, Blood 5.1 mmol/L (3.5-5.5)
[2020-10-04 07:00] LABS: Bacteria Few /hpf; Red Blood Cells, Urine 0-2 /hpf (0-2); Squamous Epithelial Cells Mod /hpf (Few); White Blood Cells, Urine 0-2 /hpf (0-5)
[2020-10-04 07:07] LABS: Hematocrit 20.8 % (33.0-51.0); Mean Corpuscular HGB 33.5 pg (26.0-34.0); Mean Corpuscular HGB Conc 33.2 g/dL (31.5-36.5); Mean Corpuscular Volume 101 fL (80-100); Red Blood Cell Count 2.06 M/mm3 (3.80-5.20)
[2020-10-04 07:10] LABS: Platelet Count 31 K/mm3 (150-400)
--- NOTE | 2020-10-04 07:40 | NUR ---
ASSUMED CARE: PT APPEARST TO BE SLEEPING IN THE ROOM, WAKES EASILY TO SOUND. PT HAS DIFFICULT UNDERSTANDING THIS RN WITH MASK ON D/T [place]. PT IS ABLE TO REPOSSITION SELF IN THE BED. NO ACUTE DISTRESS NOTED AT THIS TIME. PT C/O PAIN IN HER R SHOLDER STATES IS MUCH BETTER AFTER REPOSSITIONING. WBC IS NOTED TO BE VERY LOW, WILL KEEP THE DOOR CLOSED MUCH POSSIBLE TO REDUCE RISK OF AIRBORN INFECTIONS. CALL LIGHT IN REACH. PT IS A/O X 4 AND IS ABLE TO COMMUNICATE NEEDS. BED IN LOWEST POSSITION.
[2020-10-04 12:53] LABS: BASOPHILS PERCENT AUTO 0 % (0-2); EOSINOPHILS ABSOLUTE AUTO 0.02 K/mm3 (0.00-0.68); EOSINOPHILS PERCENT AUTO 1 % (0-6); IMMATURE GRAN ABSOLUTE AUTO 0.01 K/mm3 (0.00-0.10); IMMATURE GRAN PERCENT AUTO 1 % (0-1); LYMPHOCYTES ABSOLUTE AUTO 0.46 K/mm3 (0.84-5.20); LYMPHOCYTES PERCENT AUTO 32 % (21-46); MONOCYTES ABSOLUTE AUTO 0.05 K/mm3 (0.16-1.47); MONOCYTES PERCENT AUTO 3 % (4-13); NEUTROPHILS ABSOLUTE AUTO 0.91 K/mm3 (1.96-9.15); NEUTROPHILS PERCENT AUTO 63 % (41-73); White Blood Cell Count 1.45 K/mm3 (4.00-11.30)
[2020-10-04 13:05] LABS: Hematocrit 21.2 % (33.0-51.0); Mean Corpuscular HGB 33.8 pg (26.0-34.0); Mean Corpuscular Volume 102 fL (80-100); Red Blood Cell Count 2.07 M/mm3 (3.80-5.20)
[2020-10-04 13:07] LABS: Platelet Count 18 K/mm3 (150-400)
--- NOTE | 2020-10-04 15:00 | NUR ---
UPDATE: CALLED DR FAN TO DISCUSS PT PLAN OF CARE. DR FAN STATES WE ARE GOING TO CONTINUE TO MONITOR HER OVER NIGHT AND IF SHE REMAINS STABLE THEN WE WILL LOOK AT TRANSFERING HER OUT. FANTASMAFIED THE REASONING TO KEEP HER IN ICU. HE STATES HE WANTS TO MAKE SURE SHE BECOMES MORE HEMODINAMICLY STABLE.
[2020-10-04 19:09] LABS: Hematocrit 21.3 % (33.0-51.0); Hemoglobin 6.9 g/dL (11.5-16.0); Mean Corpuscular HGB Conc 32.4 g/dL (31.5-36.5); Mean Corpuscular Volume 105 fL (80-100); Mean Platelet Volume 9.3 fL (9.1-12.4); Red Blood Cell Count 2.03 M/mm3 (3.80-5.20); White Blood Cell Count 2.04 K/mm3 (4.00-11.30)
[2020-10-04 19:17] LABS: Platelet Count 12 K/mm3 (150-400)
[2020-10-04 19:34] LABS: BAND PERCENT MAN 9 % (0-8); BASOPHILS PERCENT MAN 0 % (0-2); EOSINOPHILS PERCENT MAN 0 % (0-6); LYMPHOCYTES ABSOLUTE MAN 0.26 K/mm3 (0.84-5.20); LYMPHOCYTES PERCENT MAN 13 % (21-46); METAMYELOCYTE ABSOLUTE MAN 0.02 K/mm3 (0.00-0.00); METAMYELOCYTE PERCENT MAN 1 % (0-0); MONOCYTES ABSOLUTE MAN 0.02 K/mm3 (0.16-1.47); MONOCYTES PERCENT MAN 1 % (4-13); NEUTROPHILS ABSOLUTE MAN 1.73 K/mm3 (1.96-9.15); SEG NEUTROPHILS PERCENT MAN 76 % (41-73); TOTAL CELLS COUNTED 100
--- NOTE | 2020-10-04 19:34 | NUR ---
ASSUMED CARE OF PT AT 1915. REPORT RECEIVED. PT PRESENTS IN BED. ALERT AND ORIENTED. PLEASANT AND COOPERATIVE WITH CARE AND ASSESSMENT. VERY HARD OF HEARING. IS ABLE TO HEAR SOME WITH REPEATED ATTEMPTS. ONLY COMPLAINT FROM PATIENT IS THAT SHE FEELS TIRED AND SLEEPY. WILL REVIEW CHART AND PLAN OF CARE FOR THIS PT.
--- NOTE | 2020-10-04 22:15 | NUR ---
PT REMAINS CONFUSED. ATTEMPTED SIMPLE BEDSIDE SWALLOW EVALUATION WITH THICKENED FLUID AND APPLESAUCE TO SEE IF PT WAS ABLE TO TAKE HER MEDICATIONS. PT WAS UNABLE TO FOLLOW DIRECTIONS. PT WOULD CLOSE HER MOUTH AND NOT TAKE OFFERED FLUID, AND APPLESAUCE.
--- NOTE | 2020-10-05 03:15 | NUR ---
PT UP TO BEDSIDE COMMODE WITH ASSIST. MOSTLY TO ASSIST WITH CORDS AND WIRES. PT VOIDS Q.S. NO COMPLAINTS OF VERTIGO WHILE UP THOUGH DOES BECOME TACHYPNEIC AND RECOVERS WELL ONCE BACK TO BED. WILL CONTINUE TO MONITOR.
[2020-10-05 04:05] LABS: Hemoglobin 7.1 g/dL (11.5-16.0); Mean Platelet Volume 9.6 fL (9.1-12.4); White Blood Cell Count 1.53 K/mm3 (4.00-11.30)
[2020-10-05 04:06] LABS: Hematocrit 22.3 % (33.0-51.0); Mean Corpuscular HGB 34.1 pg (26.0-34.0); Mean Corpuscular HGB Conc 31.8 g/dL (31.5-36.5); Mean Corpuscular Volume 107 fL (80-100); Red Blood Cell Count 2.08 M/mm3 (3.80-5.20)
[2020-10-05 04:07] LABS: Platelet Count 7 K/mm3 (150-400)
[2020-10-05 04:21] LABS: Calcium, Blood 7.9 mg/dL (8.5-10.1); Potassium, Blood 4.9 mmol/L (3.5-5.5)
--- NOTE | 2020-10-05 05:51 | NUR ---
PT REMAINS WITH LEVOPHED AT 6 MCG'S/MIN WITH VASOPRESSIN. MAP REMAINS >60 PERCENT WITH SBP 90'S TO LOW 100'S. PT HAS 525 ML URINE OUTPUT AFTER RECEIVING DOSE OF LASIX. URINE CLOUDY WITH SEDIMENT. PT DOES NOT FOLLOW COMMANDS TO TAKE MEDICATIONS OR ATTEMPT AT SAFE SWALLOW TECHNIQUES. REMAINED ON ROOM AIR THROUGHOUT THE NIGHT. WILL CONTINUE TO MONITOR PT, AND WILL REPORT OFF TO ONCOMING RN.
[2020-10-05 05:53] LABS: BAND PERCENT MAN 7 % (0-8); BASOPHILS PERCENT MAN 0 % (0-2); EOSINOPHILS PERCENT MAN 0 % (0-6); LYMPHOCYTES ABSOLUTE MAN 0.41 K/mm3 (0.84-5.20); LYMPHOCYTES PERCENT MAN 27 % (21-46); MONOCYTES ABSOLUTE MAN 0.04 K/mm3 (0.16-1.47); MONOCYTES PERCENT MAN 3 % (4-13); NEUTROPHILS ABSOLUTE MAN 1.07 K/mm3 (1.96-9.15); SEG NEUTROPHILS PERCENT MAN 63 % (41-73); TOTAL CELLS COUNTED 100
--- NOTE | 2020-10-05 06:02 | NUR ---
PT PLACED IN PRECAUTIONARY NEUTRAPENIC PRECAUTIONS FOR WBC'S < 2 AND PLATELET COUNT OF 7. NO S/S BLEEDING NOTED. PT ABLE TO MOVE ABOUT BED ON HER OWN. HAS BEEN GOOD ABOUT CALLING FOR ASSIST WHEN SHE NEEDS TO GET UP TO BEDSIDE COMMODE. STEADY ON FEET THOUGH NEEDS ASSIST WITH CORDS AND TUBES. PT REMAINED ON ROOM AIR THROUGHOUT THE NIGHT. MAINTAINS O2 SATURATIONS > 90 PERCENT. NO COMPLAINTS OF DYSPNEA. CALL MADE TO DR CASTANON CONCERNING LOW PLATELET COUNT. MD REQUESTED THAT THIS BE HANDLED BY ONCOLOGY IN AM UNLESS S/S BLEEDING IS NOTED. WILL CONTINUE TO MONITOR PT, AND WILL REPORT OFF TO ONCOMING RN.
--- NOTE | 2020-10-05 08:53 | NUR ---
Dr. Jhaveri here to see the patient.
--- NOTE | 2020-10-05 08:57 | NUR ---
Meghan is alert, oriented, and cooperative this morning. INitially had no complaints except for feeling cold when she was assisted up to the commode and to the chair for breakfast. Ate about half her meal while up in the chair. Voided again and then stated she was very tired. Assisted back to bed and she said that she had some pain on her left side. Noted ecchymosis areas of the left side, and Dr. Jhaveri states that they look worse than they did yesterday. No increased tenderness to gentle palpation of the abdomen, and no enlargement of organs palpable. No other complaints at this time, except that she states she is very tired, "I've run my last mile." Now lying in bed, eyes closed in darkened room.
--- NOTE | 2020-10-05 09:10 | NUR ---
Awakened again by medical student here to see the pt. She is now complaining of "new pain in her right shoulder blade". Denies any chest pain. States pain is also mostly in her right hip. Denies nausea. States she does have shortness of breath, but does not appear to be in any distress. Lying down, HOB elevated 30 degrees, RR 20-22/min without use of accessory muscles, and no open mouth breathing. spo2 97-98% on room air.
--- NOTE | 2020-10-05 09:16 | NUR ---
Medicated with [place] for pain 8/, which she states is mostly in her right side, right shoulder. Noted small area of ecchymosis, two spots about 3 cm x 1 cm each, over the lateral side, lower rib cage area.
--- NOTE | 2020-10-05 11:08 | NUR ---
The pt is sleeping, snoring. Stated about an hour ago that the [place] had reduced her pain from 8/10 to 2 or 3/10 which was "hardly anything". Respirations even, unlabored.
--- NOTE | 2020-10-05 14:37 | NUR ---
Pt's room feels very warm; noted the thermostat is set to above 75 degrees. Pt was assisted up to commode for BM and void. Assisted back to bed. She states, "thank you for letting me sleep all day. I think I'll go back to sleep." States that she does feel warm. NOted temperature 101.8. Blankets removed, cool cloth to forehead and thermostat in room reduced to 70 degrees. Ice water provided at bedside and encouraged oral intake.
--- NOTE | 2020-10-05 14:57 | NUR ---
Meghan complained suddenly of feeling like she was going to throw up. NO emesis, zofran given per PRN orders. States that she feels chilled. Noted temperature is 101.4. Told pt when her nausea resolves, Tylenol will be given for her fever and chills. she verbalized understanding.
--- NOTE | 2020-10-05 15:58 | NUR ---
Pt states that her nausea has resolved, and she is just feeling tired right now.
--- NOTE | 2020-10-05 16:17 | NUR ---
States nausea is resolved, but does not want any dinner this evening. Took tylenol at this time for fever and chills. States she is very tired.
--- NOTE | 2020-10-05 20:00 | NUR ---
CARE ASSUMPTION PT A&O X4. [place]. VSS. MONITOR SHOWS NSR, HR 90's. SPO2 > 92% ON 2L NC, TITRATED TO 1L THEN RA W/ PT TOLERATING WELL. PT DENIES PAIN & NAUSEA. WILL CONTINUE TO MONITOR & PROVIDE CARE.
[2020-10-06 04:14] LABS: Hemoglobin 6.2 g/dL (11.5-16.0); Mean Platelet Volume 12.6 fL (9.1-12.4)
[2020-10-06 04:19] LABS: Hematocrit 19.8 % (33.0-51.0); Mean Corpuscular HGB 34.4 pg (26.0-34.0); Mean Corpuscular HGB Conc 31.3 g/dL (31.5-36.5); Mean Corpuscular Volume 110 fL (80-100)
[2020-10-06 04:21] LABS: Platelet Count 8 K/mm3 (150-400); White Blood Cell Count 0.94 K/mm3 (4.00-11.30)
[2020-10-06 04:47] LABS: BAND PERCENT MAN 28 % (0-8); BASOPHILS PERCENT MAN 0 % (0-2); EOSINOPHILS PERCENT MAN 0 % (0-6); LYMPHOCYTES ABSOLUTE MAN 0.09 K/mm3 (0.84-5.20); LYMPHOCYTES PERCENT MAN 10 % (21-46); METAMYELOCYTE ABSOLUTE MAN 0.03 K/mm3 (0.00-0.00); METAMYELOCYTE PERCENT MAN 4 % (0-0); MONOCYTES ABSOLUTE MAN 0.13 K/mm3 (0.16-1.47); MONOCYTES PERCENT MAN 14 % (4-13); NEUTROPHILS ABSOLUTE MAN 0.67 K/mm3 (1.96-9.15); SEG NEUTROPHILS PERCENT MAN 44 % (41-73); TOTAL CELLS COUNTED 50
--- NOTE | 2020-10-06 05:24 | NUR ---
LABS / CALL TO MD CALL TO MD PEDERSEN TO REPORT CL WBC 0.94, LOW HGB 6.2, & PLT 8. PT ALREADY IN NEUTROPENIC PRECAUTIONS. W/ ORDER TO TRANSFUSE 1 U PRBC's.
--- NOTE | 2020-10-06 06:47 | NUR ---
SHIFT SUMAMRY PT CONTINUES TO BE A&O X4. CHER-AE HEIGHTS. VSS. MONITOR SHOWING SR-ST, HR 80's-110. SPO2 > 92% ON RA. PT TEMP ELEVATED, MEDICATED W/ PRN TYLENOL X1 THIS SHIFT. PT HGB LOW THIS AM, SEE PREVIOUS NOTE. 1 U PRBC's INFUSING AT THIS TIME. WILL CONTINUE TO MONITOR & PROVIDE CARE UNTIL REPORT OFF TO DAY SHIFT RN.
--- NOTE | 2020-10-06 07:05 | NUR ---
ASSUMED CARE: RECEIVED REPORT FROM NOC RN. PT LYING IN BED RESTING WHILE RECEIVING A UNIT OF BLOOD. NO ACUTE DISTRESS NOTED. PT APPEARS TO HAVE EVEN CHEST RISE AND FALL. WILL CONTINUE TO MONIOR AND ASSESS FURTHER.
[2020-10-06 09:09] LABS: Percent Saturation 22.7 % (15.0-50.0)
--- NOTE | 2020-10-06 09:44 | NUR ---
DR BOSCHESE IN TO SEE THE PT. ASKS FOR CBC TO BE DONE ONE HOUR AFTER PLTS ARE TRANSFUSED. UPDATED HIM ON PT CONDITION CURRENTLY. PT APPEARS TO BE A/O X 4. WILL CONTINUE TO MONITOR AND ASSESS FURTHER. DR NOTIFIED OF PT TEMP BEING 101.3
[2020-10-06 12:47] LABS: Mean Platelet Volume 10.4 fL (9.1-12.4); White Blood Cell Count 1.06 K/mm3 (4.00-11.30)
[2020-10-06 12:59] LABS: Hematocrit 21.4 % (33.0-51.0); Mean Corpuscular HGB 34.5 pg (26.0-34.0); Mean Corpuscular HGB Conc 32.7 g/dL (31.5-36.5); Mean Corpuscular Volume 105 fL (80-100); Red Blood Cell Count 2.03 M/mm3 (3.80-5.20)
[2020-10-06 13:01] LABS: Platelet Count 29 K/mm3 (150-400)
[2020-10-06 14:01] LABS: RETICULOCYTE COUNT PERCENT 1.13 % (0.50-2.50)
[2020-10-06 14:04] LABS: IMMATURE RETIC FRACTION 15.2 % (2.3-16.0); RETICULOCYTE ABSOLUTE 0.0235 M/mm3 (0.0200-0.1100)
--- NOTE | 2020-10-06 19:40 | NUR ---
ASSUMED CARE PT A&O X4; VSS; NSR NOTED ON MONITOR; DENIES CHEST PAIN; O2 SATS >93 ON RA; COARSE COUGH NOTED; CRACKLES HEARD IN BASES; PT WATCHING TV; NO DISTRESS NOTED; CALL LIGHT IN REACH; BED IN LOWEST POSITION.
[2020-10-07 03:52] LABS: Mean Corpuscular HGB 33.2 pg (26.0-34.0); Mean Corpuscular HGB Conc 31.8 g/dL (31.5-36.5); Mean Corpuscular Volume 104 fL (80-100); RDW Coefficient Variation 27.5 % (11.7-14.2); RDW Standard Deviation 89.5 fL (35.1-46.3); Red Blood Cell Count 2.11 M/mm3 (3.80-5.20)
[2020-10-07 03:55] LABS: BASOPHILS PERCENT AUTO 0 % (0-2); EOSINOPHILS ABSOLUTE AUTO 0.02 K/mm3 (0.00-0.68); EOSINOPHILS PERCENT AUTO 2 % (0-6); IMMATURE GRAN ABSOLUTE AUTO 0.02 K/mm3 (0.00-0.10); IMMATURE GRAN PERCENT AUTO 2 % (0-1); LYMPHOCYTES ABSOLUTE AUTO 0.23 K/mm3 (0.84-5.20); LYMPHOCYTES PERCENT AUTO 27 % (21-46); MONOCYTES ABSOLUTE AUTO 0.08 K/mm3 (0.16-1.47); MONOCYTES PERCENT AUTO 9 % (4-13); NEUTROPHILS PERCENT AUTO 59 % (41-73)
[2020-10-07 03:56] LABS: Platelet Count 3 K/mm3 (150-400); White Blood Cell Count 0.85 K/mm3 (4.00-11.30)
--- NOTE | 2020-10-07 05:02 | NUR ---
SHIFT SUMMARY PT A&O X4; VSS; DENIES CHEST PAIN; O2 SATS >93 ON RA; CRACKLES NOTED IN BASES; RT AT BEDSIDE FOR ASSESSMENT AND BREATHING TX; PT C/O HEADACHE, ADMINISTERED TYLENOL 1X THIS SHIFT; NOTIFIED OF CRITICAL WBC 0.85 AND PLATELET 3; NEW ORDER FOR 2 U PLATELETS ORDERED; BLOOD BLANK CURRENTLY REQUESTING 1 UNIT TO BE ADMINISTERED NOW AND THE SECOND UNIT TO BE ADMINISTERED WHEN SHIPMENT IS RECEIVED; NOTIFIED;SBA FOR BRP; PT CALL APPROPRIATELY; CALL LIGHT IN REACH; BED IN LOWEST POSITION; WILL CONTINUE TO MONITOR CLOSELY UNTIL HAND OFF TO DAY SHIFT RN.
--- NOTE | 2020-10-07 05:42 | NUR ---
UPDATE PT CONTINUES TO C/O HEADACHE PAIN 8 OF 10; TYLENOL GIVEN AND ICE PACK OFFERED; PT RESTING IN BED; 1 UNIT OF PLATELET STARTED.
[2020-10-07 06:05] LABS: Stool Occult Blood Guaiac 1 Neg (Neg)
--- NOTE | 2020-10-07 07:26 | NUR ---
ASSUMED CARE: PT RESTING QUIETLY AT THIS TIME. NSR AT 88. SALINE LOCKED, NIGHT RN STATED PT RECIEVED A UNIT OF PLATELETS THIS AM. NO ACUTE NEEDS OR CONCERNS AT THIS TIME.
[2020-10-07 12:19] LABS: Hematocrit 23.6 % (33.0-51.0); Hemoglobin 7.4 g/dL (11.5-16.0); Mean Corpuscular HGB 33.8 pg (26.0-34.0); Mean Corpuscular HGB Conc 31.4 g/dL (31.5-36.5); Mean Corpuscular Volume 108 fL (80-100); Mean Platelet Volume 11.3 fL (9.1-12.4); RDW Coefficient Variation 27.4 % (11.7-14.2); RDW Standard Deviation 92.5 fL (35.1-46.3); Red Blood Cell Count 2.19 M/mm3 (3.80-5.20)
[2020-10-07 12:37] LABS: Creatinine, Blood 0.81 mg/dL (0.40-1.00); Vancomycin, Random 9.2 ug/mL
[2020-10-07 12:46] LABS: Platelet Count 9 K/mm3 (150-400); White Blood Cell Count 0.86 K/mm3 (4.00-11.30)
[2020-10-07 12:51] LABS: BASOPHILS PERCENT MAN 0 % (0-2); EOSINOPHILS ABSOLUTE MAN 0.01 K/mm3 (0.00-0.68); EOSINOPHILS PERCENT MAN 2 % (0-6); LYMPHOCYTES ABSOLUTE MAN 0.27 K/mm3 (0.84-5.20); LYMPHOCYTES PERCENT MAN 32 % (21-46); MONOCYTES ABSOLUTE MAN 0.08 K/mm3 (0.16-1.47); MONOCYTES PERCENT MAN 10 % (4-13); NEUTROPHILS ABSOLUTE MAN 0.48 K/mm3 (1.96-9.15); SEG NEUTROPHILS PERCENT MAN 56 % (41-73); TOTAL CELLS COUNTED 50
--- NOTE | 2020-10-07 16:19 | NUR ---
PHARMACY AWARE THAT VANCO IS DELAYED DUE TO BLOOD PRODUCTS RUNNING THAT CANNOT BE INCREASED DUE TO PT'S SENSITIVE VEINS. IV CHANGED ONCE ALREADY DUE TO FIRST ONE LEAKING AND BECOMING TENDER FOR PT AT FASTER RATE.
--- NOTE | 2020-10-07 18:26 | NUR ---
SHIFT SUMMARY: PT HAS BEEN MEDICATED X1 FOR PAIN, NAUSEA, AND CONSTIPATION. 2 UNITS PLATELETS GIVEN THIS AM WITH PLAN FOR RECHECK IN AM. DR BELTRAN STATES PT HAS ASPIRATION PNEUMONIA AND NEUTROPENIC FEVER FROM THAT. PLAN IS TO STABILIZE BLOOD NUMBERS AND TREAT WITH ANTIBIOTICS IN THE MEAN TIME. VISITOR AT BEDSIDE AT THIS TIME. NO FURTHER NEEDS OR CONCERNS
--- NOTE | 2020-10-07 20:00 | NUR ---
RECEIVING NOTE RECEIVED HAND OFF FROM Lauren OMALLEY RN USING SBAR. LYING IN SEMI FOWLERS WITH EYES OPEN. AAO X3, BUCKNER WEAKLY, FOLLOWS ALL COMMANDS. PT IS VERY [place], WEARS HEARING AIDS. REORIENTED TO ROOM, CALL SYTEM, AND POC, VOICES UNDERSTANDING. RESPIRATIONS EVEN AND UNLABORED ON ROOM AIR. LUNG SOUNDS COARSE BILATERALLY PRODUCTIVE HARSH COUGH NOTED, SPITS INTO EMESIS BAG. RIGHT UPPER ARM SL 22G PIV IS PATENT, FLUSHING WITH EASE. CONTINENT OF BOWEL AND BLADDER, VOIDS PER BSC WITH STANDBY ASSISTANCE. DENIES PAIN, DISCOMFORT, FURTHER NEEDS, OR WANTS AT THIS TIME. SHIFT ASSESSMENT IN PROGRESS. SAFETY MEASURES IN PLACE. WILL CONTINUE TO MONITOR.
[2020-10-08 03:29] LABS: Hematocrit 21.4 % (33.0-51.0); Hemoglobin 6.9 g/dL (11.5-16.0); Mean Corpuscular HGB 33.7 pg (26.0-34.0); Mean Corpuscular HGB Conc 32.2 g/dL (31.5-36.5); Mean Corpuscular Volume 104 fL (80-100); RDW Coefficient Variation 26.7 % (11.7-14.2); RDW Standard Deviation 89.3 fL (35.1-46.3); Red Blood Cell Count 2.05 M/mm3 (3.80-5.20)
[2020-10-08 03:31] LABS: BASOPHILS PERCENT AUTO 0 % (0-2); EOSINOPHILS ABSOLUTE AUTO 0.02 K/mm3 (0.00-0.68); EOSINOPHILS PERCENT AUTO 2 % (0-6); IMMATURE GRAN ABSOLUTE AUTO 0.13 K/mm3 (0.00-0.10); IMMATURE GRAN PERCENT AUTO 14 % (0-1); LYMPHOCYTES ABSOLUTE AUTO 0.37 K/mm3 (0.84-5.20); LYMPHOCYTES PERCENT AUTO 39 % (21-46); MONOCYTES ABSOLUTE AUTO 0.07 K/mm3 (0.16-1.47); MONOCYTES PERCENT AUTO 7 % (4-13); NEUTROPHILS ABSOLUTE AUTO 0.37 K/mm3 (1.96-9.15); NEUTROPHILS PERCENT AUTO 39 % (41-73)
[2020-10-08 03:32] LABS: Platelet Count 1 K/mm3 (150-400); White Blood Cell Count 0.96 K/mm3 (4.00-11.30)
[2020-10-08 03:56] LABS: BAND PERCENT MAN 5 % (0-8); BASOPHILS PERCENT MAN 0 % (0-2); EOSINOPHILS PERCENT MAN 1 % (0-6); LYMPHOCYTES ABSOLUTE MAN 0.42 K/mm3 (0.84-5.20); LYMPHOCYTES PERCENT MAN 44 % (21-46); MONOCYTES ABSOLUTE MAN 0.06 K/mm3 (0.16-1.47); MONOCYTES PERCENT MAN 7 % (4-13); NEUTROPHILS ABSOLUTE MAN 0.46 K/mm3 (1.96-9.15); SEG NEUTROPHILS PERCENT MAN 43 % (41-73); TOTAL CELLS COUNTED 100
--- NOTE | 2020-10-08 05:52 | NUR ---
SHIFT SUMMARY LYING IN SEMI FOWLERS WITH EYES CLOSED. HAS RESTED WELL. O2 APPLIED AT 2L/NC WHILE SLEEPING D/T DESATING ON RA, HAS TOLERATED WELL AND MAINTAINED O2 SAT > 92%. IMROVEMENT NOTED IN WBC AND AND PLATELETTES. DENIES FURTHER NEEDS OR WANTS AT THIS TIME. SAFETY MEASURES IN PLACE. WILL CONTINUE TO MONITOR AND GIVE HAND OFF TO ONCOMING SHIFT USING SBAR.
--- NOTE | 2020-10-08 07:39 | NUR ---
ASSUMED CARE: RECEIVED REPORT FROM NOC RN. NO ACUTE DISTRESS NOTED. PT APPEARS TO BE STABLE AT THIS TIME, HR IN THE 90'S AND O2 SATS @ 98% ON RA. WILL CONTINUE TO MONITOR AND ASSESS FURTHER.
[2020-10-08 16:00] LABS: Hematocrit 21.3 % (33.0-51.0); Hemoglobin 6.7 g/dL (11.5-16.0); Mean Corpuscular HGB 33.8 pg (26.0-34.0); Mean Corpuscular HGB Conc 31.5 g/dL (31.5-36.5); Mean Corpuscular Volume 108 fL (80-100); RDW Coefficient Variation 26.5 % (11.7-14.2); RDW Standard Deviation 91.4 fL (35.1-46.3); Red Blood Cell Count 1.98 M/mm3 (3.80-5.20)
[2020-10-08 16:01] LABS: BASOPHILS PERCENT AUTO 0 % (0-2); EOSINOPHILS ABSOLUTE AUTO 0.03 K/mm3 (0.00-0.68); EOSINOPHILS PERCENT AUTO 3 % (0-6); IMMATURE GRAN ABSOLUTE AUTO 0.01 K/mm3 (0.00-0.10); IMMATURE GRAN PERCENT AUTO 1 % (0-1); LYMPHOCYTES ABSOLUTE AUTO 0.34 K/mm3 (0.84-5.20); LYMPHOCYTES PERCENT AUTO 38 % (21-46); MONOCYTES ABSOLUTE AUTO 0.06 K/mm3 (0.16-1.47); MONOCYTES PERCENT AUTO 7 % (4-13); NEUTROPHILS ABSOLUTE AUTO 0.45 K/mm3 (1.96-9.15); NEUTROPHILS PERCENT AUTO 51 % (41-73)
[2020-10-08 16:02] LABS: Platelet Count 2 K/mm3 (150-400); White Blood Cell Count 0.89 K/mm3 (4.00-11.30)
[2020-10-08 16:17] LABS: Vancomycin, Random 10.5 ug/mL
[2020-10-08 16:48] LABS: BASOPHILS PERCENT MAN 0 % (0-2); EOSINOPHILS ABSOLUTE MAN 0.01 K/mm3 (0.00-0.68); EOSINOPHILS PERCENT MAN 2 % (0-6); LYMPHOCYTES ABSOLUTE MAN 0.49 K/mm3 (0.84-5.20); LYMPHOCYTES PERCENT MAN 56 % (21-46); METAMYELOCYTE ABSOLUTE MAN 0.01 K/mm3 (0.00-0.00); METAMYELOCYTE PERCENT MAN 2 % (0-0); MONOCYTES ABSOLUTE MAN 0.03 K/mm3 (0.16-1.47); MONOCYTES PERCENT MAN 4 % (4-13); NEUTROPHILS ABSOLUTE MAN 0.32 K/mm3 (1.96-9.15); SEG NEUTROPHILS PERCENT MAN 36 % (41-73); TOTAL CELLS COUNTED 50
--- NOTE | 2020-10-08 18:01 | NUR ---
TRANSFERED PT TO PCU 6: REPORT GIVEN. PT ACCESS ACHEIVED WITH A PICC LINE. STARTED BLOOD BACK UP SOON ACCESS WAS ACHEIVED. PUMP FOR BLOOD RAN IN WITHIN AN HOUR TIME LINE SO NOT TO SURPASS THE 4 HOUR LIMIT. AFRICAN STUDIES PROFESSOR NOTIFIED OF THE SITUATION. PICC LINE PRESSURE DRESSING WAS PLACED WITH THE PICC LINE WHICH IS TO BE CHANGED 10/09 AFRICAN STUDIES PROFESSOR NOTIFIED.
--- NOTE | 2020-10-08 18:03 | NUR ---
ASSUMED CARE: PT TRANSFERRED FROM ICU VIA WHEEL CHAIR. PRBCS RUNNING THROUGH PICC LINE. 2 UNITS PLATELETS TO INFUSE AFTER THAT. TOP LIFTER AT BEDSIDE. VSS AT THIS TIME. CALL LIGHT IN REACH. NO ACUTE NEEDS OR CONCERNS.
[2020-10-09 05:50] LABS: Hemoglobin 6.7 g/dL (11.5-16.0); Mean Corpuscular HGB Conc 31.9 g/dL (31.5-36.5); RDW Coefficient Variation 25.2 % (11.7-14.2); RDW Standard Deviation 82.2 fL (35.1-46.3); Red Blood Cell Count 2.03 M/mm3 (3.80-5.20)
[2020-10-09 05:57] LABS: Mean Corpuscular Volume 103 fL (80-100)
[2020-10-09 06:01] LABS: Alanine Aminotransfer (ALT/SGP 13 U/L (12-78); Albumin, Blood 2.8 g/dL (3.4-5.0); Albumin/Globulin Ratio 0.9 (0.8-1.8); Alk Phos 51 U/L (50-136); Anion Gap 4 mmol/L (6-16); Aspartate Aminotrans (AST/SGOT 10 U/L (12-37); Bilirubin, Total 1.1 mg/dL (0.1-1.0); Blood Urea Nitrogen 17 mg/dL (8-24); Bun/Creatinine Ratio 23.9 (12.0-20.0); CO2, Blood 27 mmol/L (21-32); Calcium, Blood 7.8 mg/dL (8.5-10.1); Chloride, Blood 110 mmol/L (98-108); Creatinine, Blood 0.71 mg/dL (0.40-1.00); Globulin, Blood 3.1 g/dL (2.2-4.0); Glomerular Filtration Rate >60 (60-); Glucose, Blood 88 mg/dL (70-99); Potassium, Blood 3.7 mmol/L (3.5-5.5); Sodium, Blood 141 mmol/L (136-145); Total Protein, Blood 5.9 g/dL (6.4-8.2)
[2020-10-09 06:05] LABS: Platelet Count 1 K/mm3 (150-400)
[2020-10-09 06:34] LABS: BAND PERCENT MAN 4 % (0-8); BASOPHILS PERCENT MAN 0 % (0-2); EOSINOPHILS ABSOLUTE MAN 0.02 K/mm3 (0.00-0.68); EOSINOPHILS PERCENT MAN 2 % (0-6); LYMPHOCYTES PERCENT MAN 40 % (21-46); METAMYELOCYTE ABSOLUTE MAN 0.01 K/mm3 (0.00-0.00); METAMYELOCYTE PERCENT MAN 1 % (0-0); MONOCYTES ABSOLUTE MAN 0.07 K/mm3 (0.16-1.47); MONOCYTES PERCENT MAN 7 % (4-13); SEG NEUTROPHILS PERCENT MAN 46 % (41-73); TOTAL CELLS COUNTED 100
--- NOTE | 2020-10-09 07:54 | NUR ---
SHIFT SUMMARY START OF SHIFT TWO UNITS OF PLATELETS WERE TRANSFUSED, PT HAD NO ADVERSE REACTIONS. PRESSURE DRESSING ON PICC LINE WAS REMOVED WITH NO VISABLE BLEEDING. PT HAD A PRODUCTIVE FREQUENT COUGH WITH BLOOD TINGED SPUTUM. LUNGS WERE COARSE WITH CRACKLES BECOMING MORE WET SOUNDING AFTER THE SECOND INFUSION OF PLATELETS. PT WAS ON 2LPM NC WITH O2 SATS IN THE 90'S AND MILD DYSPNEA WITH EXERTION. PT HAD AN SOB EPISODE AFTER USING THE BSC, RT GAVE A BREATHING TREATMENT AND PT WAS NO LONGER SOB. VITALS WERE STABLE WITH BP 140-150'S SYSTOLIC, HR IN THE 90'S IN SINUS RHYTHM. PT STATED HAVING A VERY UNRESTFUL, UNCOMFORTABLE EVENING. WILL CONTINUE TO MONITOR UNTIL SHIFT CHANGE.
--- NOTE | 2020-10-09 08:00 | NUR ---
pt laying in bed awake, watching tv, profoundly hard of hearing, cooperative with care, follows commands well, reports 8/10 pain, wants pain pill, lungs are course, with exp wheezing t/o, resp even and unlabored, no cough noted, is on 2 liters 02 via n/c, hrr, murmur noted,tele in place running st per monitor, see strip, no edema noted, ppp+1, cap refill <3 sec, vs stable, afebrile, iv site is picc line to brenda, site is clear and patent, btx4, abd flat soft nontender, gets up to bsc to void, skin c/w/d, maew, dixon, call light in reach.
[2020-10-09 12:45] LABS: Hematocrit 21.2 % (33.0-51.0); Hemoglobin 6.7 g/dL (11.5-16.0); Mean Corpuscular HGB 33.3 pg (26.0-34.0); Mean Corpuscular HGB Conc 31.6 g/dL (31.5-36.5); Mean Corpuscular Volume 106 fL (80-100); RDW Coefficient Variation 25.6 % (11.7-14.2); RDW Standard Deviation 84.8 fL (35.1-46.3); Red Blood Cell Count 2.01 M/mm3 (3.80-5.20); White Blood Cell Count 1.12 K/mm3 (4.00-11.30)
[2020-10-09 12:56] LABS: Vancomycin, Random 11.4 ug/mL
[2020-10-09 13:06] LABS: Mean Platelet Volume 13.6 fL (9.1-12.4); Platelet Count 2 K/mm3 (150-400)
[2020-10-09 13:27] LABS: BASOPHILS PERCENT MAN 0 % (0-2); EOSINOPHILS ABSOLUTE MAN 0.02 K/mm3 (0.00-0.68); EOSINOPHILS PERCENT MAN 2 % (0-6); LYMPHOCYTES ABSOLUTE MAN 0.51 K/mm3 (0.84-5.20); LYMPHOCYTES PERCENT MAN 46 % (21-46); MONOCYTES ABSOLUTE MAN 0.08 K/mm3 (0.16-1.47); MONOCYTES PERCENT MAN 8 % (4-13); NEUTROPHILS ABSOLUTE MAN 0.49 K/mm3 (1.96-9.15); SEG NEUTROPHILS PERCENT MAN 44 % (41-73); TOTAL CELLS COUNTED 50
--- NOTE | 2020-10-09 18:29 | NUR ---
PT HAD A UNIT OF FFP AND RBC'S TODAY, SHE TOLERATED WELL, V.S. REMAIN STABLE, NO FURTHER CHANGES THIS SHIFT. CALL LIGHT IN REACH.
[2020-10-10 05:41] LABS: Hematocrit 25.5 % (33.0-51.0); Hemoglobin 8.2 g/dL (11.5-16.0); Mean Corpuscular HGB 33.1 pg (26.0-34.0); Mean Corpuscular HGB Conc 32.2 g/dL (31.5-36.5); Mean Corpuscular Volume 103 fL (80-100); RDW Coefficient Variation 23.3 % (11.7-14.2); RDW Standard Deviation 78.2 fL (35.1-46.3); Red Blood Cell Count 2.48 M/mm3 (3.80-5.20); White Blood Cell Count 1.17 K/mm3 (4.00-11.30)
[2020-10-10 05:51] LABS: Platelet Count 1 K/mm3 (150-400)
[2020-10-10 06:16] LABS: BASOPHILS PERCENT MAN 0 % (0-2); EOSINOPHILS PERCENT MAN 0 % (0-6); LYMPHOCYTES ABSOLUTE MAN 0.37 K/mm3 (0.84-5.20); LYMPHOCYTES PERCENT MAN 32 % (21-46); MONOCYTES ABSOLUTE MAN 0.14 K/mm3 (0.16-1.47); MONOCYTES PERCENT MAN 12 % (4-13); NEUTROPHILS ABSOLUTE MAN 0.65 K/mm3 (1.96-9.15); SEG NEUTROPHILS PERCENT MAN 56 % (41-73); TOTAL CELLS COUNTED 25
[2020-10-10 06:24] LABS: Albumin, Blood 2.7 g/dL (3.4-5.0); Anion Gap 7 mmol/L (6-16); Blood Urea Nitrogen 17 mg/dL (8-24); Bun/Creatinine Ratio 24.5 (12.0-20.0); CO2, Blood 23 mmol/L (21-32); Calcium, Blood 8.1 mg/dL (8.5-10.1); Chloride, Blood 111 mmol/L (98-108); Glomerular Filtration Rate >60 (60-); Glucose, Blood 84 mg/dL (70-99); Potassium, Blood 3.5 mmol/L (3.5-5.5); Sodium, Blood 141 mmol/L (136-145)
--- NOTE | 2020-10-10 07:30 | NUR ---
SHIFT SUMMARY PT WAS AWAKE MOST OF THE NIGHT WITH A BLOODY NOSE AND COUGHING THAT WAS PRODUCTIVE WITH BLOODY SPUTUM. PT STATED HAVING SOB WHEN GETTING UP TO THE BSC THAT WAS RELIEVED WITH REST, LUNG SOUNDS WERE CRACKLES AND WET. ON 2 LPM NC WITH O2 SATS IN THE 90'S. BP WAS HYPERTENSIVE WHEN TAKEN IN THE ARM, PT STATED IT WAS TOO PAINFUL SO BP WAS TAKEN IN THE CALF WITH A 128/85 READING. HR 90'S. PLATLET COUNT WAS LOW AGAIN AT MORNING LABS. WILL CONTINUE TO MONITOR UNTIL SHIFT CHANGE.
--- NOTE | 2020-10-10 17:41 | NUR ---
PT SUMMARY: 1U OF PLATELETS TRANSFUSED TODAY, TO FOLLOW UP LABS IN AM. PT TO TRANSITION TO COMFORT CARE IF TRANSFUSIONS WERENT SUCCESSFUL PER PALLIATIVE CARE NURSE. NO ACUTE CHANGE FOR THE SHIFT, VITALS HRR SR/ST 90-100'S, BP SYSTOLIC 160'S, SATS ABOVE 95% ON RA, AFEBRILE. PT HAS BEEN USING BSC FOR TOILETING, HAD 2 NORMAL BM'S FOR THE SHIFT. POOR APPETITE TODAY. PT CONTINUES ON IV ABO, HAD TYLENOL X1 FOR HEADACHE WITH RELIEF. WAS UP IN THE RECLINER FOR LUNCH TODAY. NO OTHER ISSUES ENCOUNTERED, ABLE TO MAKE NEEDS KNOWN, CALLS APPROPRIATELY, WILL MONITOR UNTIL END OF SHIFT
--- NOTE | 2020-10-10 23:30 | NUR ---
PHYSICIAN NOTIFIED PHYSICIAN NOTIFED OF PT'S INCREASE IN WORK OF BREATHING. RESPIRATORY CARE BELIEVES THIS IS D/T THE PT'S INABILITY TO CLEAR MUCOUS SECRETIONS. PT ALSO REPORTS R SIDED CHEST PAIN. PHYSICIAN ORDERED MEDICATIONS PER EMAR. DOES NOT BELIEVE 12 LEAD EKG IS NEEDED AT THIS TIME D/T LIKELYHOOD OF PAIN BEING RESPIRATORY RELATED.
[2020-10-11 06:19] LABS: Hematocrit 23.5 % (33.0-51.0); Hemoglobin 7.6 g/dL (11.5-16.0); Mean Corpuscular HGB 32.6 pg (26.0-34.0); Mean Corpuscular HGB Conc 32.3 g/dL (31.5-36.5); Mean Corpuscular Volume 101 fL (80-100); RDW Coefficient Variation 22.7 % (11.7-14.2); RDW Standard Deviation 75.1 fL (35.1-46.3); Red Blood Cell Count 2.33 M/mm3 (3.80-5.20)
[2020-10-11 06:30] LABS: BASOPHILS PERCENT AUTO 0 % (0-2); EOSINOPHILS ABSOLUTE AUTO 0.02 K/mm3 (0.00-0.68); EOSINOPHILS PERCENT AUTO 2 % (0-6); IMMATURE GRAN PERCENT AUTO 0 % (0-1); LYMPHOCYTES ABSOLUTE AUTO 0.38 K/mm3 (0.84-5.20); LYMPHOCYTES PERCENT AUTO 41 % (21-46); MONOCYTES ABSOLUTE AUTO 0.14 K/mm3 (0.16-1.47); MONOCYTES PERCENT AUTO 15 % (4-13); NEUTROPHILS ABSOLUTE AUTO 0.39 K/mm3 (1.96-9.15); NEUTROPHILS PERCENT AUTO 42 % (41-73); Platelet Count 13 K/mm3 (150-400)
[2020-10-11 06:32] LABS: White Blood Cell Count 0.93 K/mm3 (4.00-11.30)
[2020-10-11 06:33] LABS: Albumin, Blood 2.7 g/dL (3.4-5.0); Anion Gap 5 mmol/L (6-16); Blood Urea Nitrogen 13 mg/dL (8-24); Bun/Creatinine Ratio 19.2 (12.0-20.0); CO2, Blood 26 mmol/L (21-32); Calcium, Blood 8.2 mg/dL (8.5-10.1); Chloride, Blood 111 mmol/L (98-108); Creatinine, Blood 0.68 mg/dL (0.40-1.00); Glomerular Filtration Rate >60 (60-); Glucose, Blood 111 mg/dL (70-99); Phosphorus, Blood 2.4 mg/dL (2.5-4.9); Potassium, Blood 3.2 mmol/L (3.5-5.5); Sodium, Blood 142 mmol/L (136-145)
--- NOTE | 2020-10-11 06:57 | NUR ---
SHIFT SUMMARY PT ALERT AND ORIENTED. PT UNABLE TO SLEEP T/O SHIFT. PT REPORTED CHEST PAIN, REPORTED THIS TO PHYSICIAN. MEDICATIONS PRESCRIBED PER EMAR. HR REMAINED TACHYCARDIC AT TIMES BUT WITH REST RETURNED TO BASELINE. BP STABLE. OXYGEN SATURATION MAINTAINED ABOVE 92% ON 1 L OF OXYGEN VIA NC. PT ABLE TO USE BEDSIDE COMMODE WITH 1 PERS ASSIST. PT ABLE TO TURN SELF IN BED NEEDED. CRITICAL LAB VALUES REPORTED TO PHYSICIAN. WILL CONTINUE TO MONITOR UNTIL REPORT GIVEN TO DAYSHIFT RN.
--- NOTE | 2020-10-11 10:47 | NUR ---
Met with pt very hard of hearing and anxious about going home. She wans unable to discuss a polst or plan of care kept deferring to her caregiver. Nursing will page me when she arrives. Pt was able to tell me she lives with her disabled son and it is getting difficult but does not want to leave him for a fci. She has family and caregiver. Pt if on hospice may quality for more caregiver hours. Will follow for updates to Doctor Weeses plan.
--- NOTE | 2020-10-11 12:01 | NUR ---
Spiritual care visit conducted. Patient tells me what she knows about her medical issues and about the symptoms she is experiencing. Patient talks about her family support system (her disabled and son and her granddaughter) and how her caregiver and her oldest daughter are the only ones who are a support to her. Patient tells me about her Rastafarian Yazidism caridad and that she has always been and always will be a Rastafarian at heart even if she can't attend scientologist any more. Patient tells me her fears about the future. I listen empathically, reinforce helpful attitudes and practices and provide spiritual guidance and prayer. Patient responds well and shows signs of an elevated mood. I will continue to help patient as she learns more about her diagnosis and prognosis to know how to process the information and make good decisions moving forward.
--- NOTE | 2020-10-11 13:06 | NUR ---
Met with patient and her caregiver to review plan of care. Her caregiver has been with her for ten years. Her POA is her daughters however, they lean on the caregiver to help with decisions. Pt has a post and advance directive. She beleives it says DNR. She will get a copy for us when she gets home and call with review of what it says. We discussed docotor Weeses plan. We reviewed the stress in home environment. air transport professionals is looking at alternate places for her to live. Caregiver states it has been difficult since Dony Leo passed and getting support. The rely on doctor Kai. At this point pt can speak for herself. IN decision making but struggles with the stress of plan due to caring for her son.
--- NOTE | 2020-10-11 18:11 | NUR ---
met with marlin hernandez in advance directive stating no life support. Revied and completed new polst. pt want DNR with limited treatment at this time. If further decline or if doctor weeses reccomends hospice will change to comfort onlyl
--- NOTE | 2020-10-11 18:16 | NUR ---
PT SUMMARY: CODE STATUS SWITCHED TO DNR LIMITED PER PALLIATIVE CARE NURSE. PT WITH NO ACUTE CHANGE FOR THE SHIFT, STILL C/O SOB WAS ADDRESSED TO DR CURTIS PT TO BE ON CONTINUOUS O2 SUPPLEMENT 1.5-2L DUE TO LOW HGB. PT HAD OCCASIONAL COUGH POST BREATHING, SMALL AMOUNT OF BLOOD TINGED SPUTUM, REFUSED COUGH MEDICINE. HAD TYLENOL X1, PT COULDN'T GET COMFORTABLE IN BED WAS OFFERED TO GET UP IN THE RECLINER FOR LUNCH TIME, PT AGREED. PT RECEIVED A BED BATH WELL PT FELT RELIEVED. VITALS HAS BEEN STBALE 1U OF PLATELET TRANSFUSED TODAY TO [facility] IN AM. NO OTHER ISSUES ENCOUNTERED FOR THE SHIFT, PT CONTINUES ON IV ABO. PT NOW IN BED RESTING, CALLS APPROPRIATELY CALL LIGHTS IN REACH, WILL REPORT TO ONCOMING SHIFT
--- NOTE | 2020-10-12 05:41 | NUR ---
SHIFT SUMMARY PT WAS PLEASENT AND COOPERATIVE WITH CARE. VITALS WERE, BP HYPERTENSIVE AT [phone] SYSTOLIC, PT IS IN ON ANTIHYPERTENSIVES AT HOME BUT HAS NOT BEEN ON THEM HERE DUE TO BEING HYPOTENSIVE UPON ADMISSION. HR WAS IN THE 90'S, O2 SATS IN THE 90'S ON 1.5 LPM VIA NC. PT HAD OCCASIONAL COUGH WITH SMALL AMOUNT OF BLOODY SPUTUM. NOSE WAS DRY BUT PT STATED FELT MUCH BETTER AND WAS NO LONGER BLEEDING. PT WAS OTHERWISE UNREMARKABLE AND ABLE TO SLEEP SOME OF THE NIGHT. WILL CONTINUE TO MONITOR UNTIL SHIFT CHANGE.
[2020-10-12 06:26] LABS: Hematocrit 24.1 % (33.0-51.0); Hemoglobin 7.9 g/dL (11.5-16.0); Mean Corpuscular HGB 33.8 pg (26.0-34.0); Mean Corpuscular HGB Conc 32.8 g/dL (31.5-36.5); Mean Corpuscular Volume 103 fL (80-100); Mean Platelet Volume 9.7 fL (9.1-12.4); RDW Coefficient Variation 22.3 % (11.7-14.2); RDW Standard Deviation 76.1 fL (35.1-46.3); Red Blood Cell Count 2.34 M/mm3 (3.80-5.20)
[2020-10-12 06:29] LABS: BASOPHILS PERCENT AUTO 0 % (0-2); EOSINOPHILS ABSOLUTE AUTO 0.02 K/mm3 (0.00-0.68); EOSINOPHILS PERCENT AUTO 2 % (0-6); IMMATURE GRAN PERCENT AUTO 0 % (0-1); LYMPHOCYTES ABSOLUTE AUTO 0.41 K/mm3 (0.84-5.20); LYMPHOCYTES PERCENT AUTO 49 % (21-46); MONOCYTES ABSOLUTE AUTO 0.12 K/mm3 (0.16-1.47); MONOCYTES PERCENT AUTO 14 % (4-13); NEUTROPHILS ABSOLUTE AUTO 0.29 K/mm3 (1.96-9.15); NEUTROPHILS PERCENT AUTO 35 % (41-73)
[2020-10-12 06:31] LABS: White Blood Cell Count 0.84 K/mm3 (4.00-11.30)
[2020-10-12 06:32] LABS: Platelet Count 7 K/mm3 (150-400)
[2020-10-12 06:41] LABS: Albumin, Blood 2.7 g/dL (3.4-5.0); Anion Gap 4 mmol/L (6-16); Blood Urea Nitrogen 12 mg/dL (8-24); Bun/Creatinine Ratio 17.5 (12.0-20.0); CO2, Blood 28 mmol/L (21-32); Calcium, Blood 8.2 mg/dL (8.5-10.1); Chloride, Blood 113 mmol/L (98-108); Creatinine, Blood 0.69 mg/dL (0.40-1.00); Glomerular Filtration Rate >60 (60-); Glucose, Blood 87 mg/dL (70-99); Magnesium, Blood 1.8 mg/dL (1.6-2.4); Phosphorus, Blood 2.8 mg/dL (2.5-4.9); Potassium, Blood 3.3 mmol/L (3.5-5.5); Sodium, Blood 145 mmol/L (136-145)
--- NOTE | 2020-10-12 11:20 | NUR ---
ASSUMED CARE OF PATIENT. REPORT RECEIVED FROM SAMEER JACKSON RN.
--- NOTE | 2020-10-12 15:45 | NUR ---
1 UNIT PLATELETS FINISHED INFUSING. THIS RN STAYED AT BEDSIDE FOR THE FIRST 15 MINUTES OF INFUSION. PATIENT AGREEABLE TO TRANSFUSION. PATIENT DENIES CHEST PAIN, SOB. VSS. SEE TRANSFUSION RECORD.
--- NOTE | 2020-10-12 19:21 | NUR ---
ASSUMED CARE OF PATIENT. REPORT RECEIVED FROM SAMEER JACKSON RN.
--- NOTE | 2020-10-12 23:30 | NUR ---
ASSUMPTION OF CARE RECEIVED BEDSIDE REPORT FROM EDNA ELLINGTON AND ASSUMED CARE FOR REMAINDER OF SHIFT. PT IS RESTING IN BED, EYES CLOSED, VSS, NO ACUTE CONCERNS. PT HAS BEEN COMPLAINING OF "CLOGGED NOSE" WHILE AWAKE AND FREQUENTLY PICKS AT IT, CAUSING SLIGHT BLEEDING. WILL CONTINUE PLAN OF CARE AND WILL CONTINUE TO MONITOR.
--- NOTE | 2020-10-12 23:59 | NUR ---
SHIFT SUMMARY: PATIENT A/OX3. [place]. HAS DENIED PAIN. UP WITH 1 SBA. 1 UNITS PLATELETS GIVEN. HAS HACKING COUGH THIS EVENING, ROBITUSSIN GIVEN. WHEN SHE BLOWS HER NOSE THERE IS BLOOD, DEEP SEA NASAL SPRAY GIVEN. SHE IS ABLE TO REPOSITION HERSELF IN BED. REPORT GIVEN TO CHANDANA PATEL.
[2020-10-13 06:20] LABS: Hematocrit 23.2 % (33.0-51.0); Hemoglobin 7.3 g/dL (11.5-16.0); Mean Corpuscular HGB 32.4 pg (26.0-34.0); Mean Corpuscular HGB Conc 31.5 g/dL (31.5-36.5); Mean Corpuscular Volume 103 fL (80-100); Mean Platelet Volume 9.9 fL (9.1-12.4); RDW Coefficient Variation 22.1 % (11.7-14.2); RDW Standard Deviation 75.9 fL (35.1-46.3); Red Blood Cell Count 2.25 M/mm3 (3.80-5.20)
[2020-10-13 06:35] LABS: BASOPHILS PERCENT AUTO 0 % (0-2); EOSINOPHILS ABSOLUTE AUTO 0.01 K/mm3 (0.00-0.68); EOSINOPHILS PERCENT AUTO 1 % (0-6); IMMATURE GRAN PERCENT AUTO 0 % (0-1); LYMPHOCYTES ABSOLUTE AUTO 0.47 K/mm3 (0.84-5.20); LYMPHOCYTES PERCENT AUTO 55 % (21-46); MONOCYTES ABSOLUTE AUTO 0.14 K/mm3 (0.16-1.47); MONOCYTES PERCENT AUTO 16 % (4-13); NEUTROPHILS ABSOLUTE AUTO 0.24 K/mm3 (1.96-9.15); NEUTROPHILS PERCENT AUTO 28 % (41-73); Platelet Count 5 K/mm3 (150-400)
[2020-10-13 06:36] LABS: Albumin, Blood 2.8 g/dL (3.4-5.0); Anion Gap 4 mmol/L (6-16); Blood Urea Nitrogen 11 mg/dL (8-24); Bun/Creatinine Ratio 16.1 (12.0-20.0); CO2, Blood 27 mmol/L (21-32); Calcium, Blood 8.5 mg/dL (8.5-10.1); Chloride, Blood 109 mmol/L (98-108); Creatinine, Blood 0.69 mg/dL (0.40-1.00); Glomerular Filtration Rate >60 (60-); Glucose, Blood 91 mg/dL (70-99); Potassium, Blood 3.6 mmol/L (3.5-5.5); Sodium, Blood 140 mmol/L (136-145); White Blood Cell Count 0.86 K/mm3 (4.00-11.30)
--- NOTE | 2020-10-13 06:40 | NUR ---
SHIFT SUMMARY PT HAS RESTED OFF AND ON, C/O NOSE "CLOGGING" AND SUBSEQUENT BLEEDING WHILE PICKING AT IT. MINIMAL DRIPS NOTED, BLEEDING STOPPED AFTER MINIMAL PRESSURE APPLIED WITH GAUZE. PT REMAINS NEUTROPENIC AND PLT COUNT CRITICAL THIS AM, PLAN FOR TRANSFUSION OF 1 UNIT OF PLATELETS. OVERALL STATUS: UNCHANGED, PLAN TO CONTINUE CLOSE MONITORING OF LABS AND PRECAUTIONS. WILL REPORT OFF TO RUI ELLINGTON.
--- NOTE | 2020-10-13 18:28 | NUR ---
SHIFT SUMMARY: PT CONTINUES A&OX3 TODAY, UP WITH SBA AND ABLE TO REPOSITION SELF IN BED. THIS AM, PT LABS REVEAL CRITICALLY LOW WBC AND PLATELETS. PT RECEIVED 1 UNIT PLATELETS, TOLERATED WELL. PT WITH BLOODY NOSE MOST OF THE AM, USING KLEENEX UP HER NOSE TO ATTEMPT TO CONTROL BLEEDING. CLAMP APPLIED TO NOSE IN THE LATE MORNING, BLEEDING HAS BEEN CONTROLLED SINCE REMOVAL OF CLAMP. PT STATUS IS CURRENTLY MEDICAL WITH NO TELE. WILL CONTINUE TO MONITOR AND TREAT ACCORDINGLY UNTIL CHANGE OF SHIFT.
[2020-10-14 05:04] LABS: Hematocrit 22.6 % (33.0-51.0); Hemoglobin 7.3 g/dL (11.5-16.0); Mean Corpuscular HGB 32.4 pg (26.0-34.0); Mean Corpuscular HGB Conc 32.3 g/dL (31.5-36.5); Mean Corpuscular Volume 100 fL (80-100); Mean Platelet Volume 9.8 fL (9.1-12.4); RDW Coefficient Variation 21.6 % (11.7-14.2); RDW Standard Deviation 73.9 fL (35.1-46.3); Red Blood Cell Count 2.25 M/mm3 (3.80-5.20)
[2020-10-14 05:10] LABS: Platelet Count 3 K/mm3 (150-400)
[2020-10-14 05:11] LABS: White Blood Cell Count 0.91 K/mm3 (4.00-11.30)
--- NOTE | 2020-10-14 05:22 | NUR ---
SHIFT SUMMARY PT ALERT AND ORIENTED X 4. PT SLEPT T/O SHIFT. PT ABLE TO TURN SELF IN BED NEEDED. PT REPORTS NO CP OR PRESSURE. HR STABLE. BP STABLE. OXYGEN SATURATION MAINTAINED ABOVE 92% ON 2 L OF OXYGEN VIA NC. WILL CONTINUE TO MONITOR UNTIL REPORT GIVEN TO FILOMENA ELLINGTON.
--- NOTE | 2020-10-14 18:12 | NUR ---
NO ACUTE EVENTS THIS SHIFT. VSS, PATIENT COMPLAINED OF PAIN IN SIDE AT TIMES, IMPROVED SOME WITH TYLENOL, EFFECTIVE RELIEF WITH NORCO ADMIN PER ORDERS. PATIENT TITRATED DOWN TO ROOM AIR, TOELRATED WELL. PATIENT ABLE TO AMBULATE WITH STANDBY ASSIST TO BEDSIDE COMMODE. PATIENT PLEASANT AND ORIENTED, IS LOOKING FORWARD TO GETTING BETTER TO THE POINT OF DISCHARGE.
--- NOTE | 2020-10-14 21:00 | NUR ---
TRIPLE LUMEN PICC NOTED TO NABEEL. SEE PICC ASSESSMENT. WHITE CAPPED LINE WILL NOT FLUSH. BLOOD NOTED IN TUBING. CHANGED CAP TO SEE IF THIS WOULD ENABLE FLUSH BUT IT DID NOT.
--- NOTE | 2020-10-15 05:47 | NUR ---
SHIFT SUMMARY: PATIENT A/OX3. HARD OF HEARING. MEDICAL STATUS WITHOUT TELE. HAD EPISODE OF CRAMP IN L LEG, WAS RELIEVED AFTER STANDING, SCD PLACEMENT, AND TYLENOL. ON ROOM AIR. STATES THAT HER NOSE IS PLUGGED AND THAT IT CAUSES DIFFICULTY BREATHING AT TIMES, BREATHING TX GIVEN, NASAL SPRAY GIVEN. ROBITUSSIN GIVEN FOR COUGH. UP WITH SBA. REFUSED BOWEL CARE MEDS TONIGHT SHE HAD TWO BMS DURING THE DAY. SPEECH THERAPY RECOMMENDS TO TAKE PILLS WITH APPLESAUCE BUT PATIENT REFUSES, TOOK THEM SITTING UP AT 90 DEGREES WITH WATER. PLAN IS FOR DISCHARGE HOME WITH PATIENT'S FRIEND ALBERTO MAURICIO. ALBERTO STATES THAT SHE IS GETTING PATIENT A BED SET UP AT HER HOME AND THAT PATIENT'S DAUGHTER FEDERICO WILL TAKE PATIENT TO HER HOUSE FROM THE HOSPITAL. PICC LINE WHITE LUMEN DOES NOT FLUSH. WILL CONTINUE TO MONITOR AND REPORT TO ONCOMING RN.
--- NOTE | 2020-10-15 06:55 | NUR ---
PATIENT STATES THAT SHE IS UNSURE IF SHE WANTS HOSPICE OR NOT. SHE IS UNSURE IF SHE WANTS TO STOP TREATMENT OR NOT. REQUESTING THAT THE DOCTOR SPEAK WITH HER CAREGIVER FEDERICO REGARDING HOSPICE VS. TREATMENT. WILL PASS ON TO DAY SHIFT. MESSAGE LEFT WITH PALLIATIVE CARE.
[2020-10-15 07:03] LABS: Hematocrit 22.9 % (33.0-51.0); Hemoglobin 7.2 g/dL (11.5-16.0); Mean Corpuscular HGB 32.4 pg (26.0-34.0); Mean Corpuscular HGB Conc 31.4 g/dL (31.5-36.5); Mean Corpuscular Volume 103 fL (80-100); Mean Platelet Volume 12.5 fL (9.1-12.4); RDW Coefficient Variation 21.5 % (11.7-14.2); RDW Standard Deviation 76.1 fL (35.1-46.3); Red Blood Cell Count 2.22 M/mm3 (3.80-5.20); White Blood Cell Count 1.02 K/mm3 (4.00-11.30)
[2020-10-15 07:10] LABS: Platelet Count 3 K/mm3 (150-400)
[2020-10-15] MEDS ORDERED: ACET325 PO (07:23)
[2020-10-15] MEDS ORDERED: Acetaminophen650 M1 PR (07:25)
[2020-10-15] MEDS ORDERED: FLUT.05NI (07:26)
[2020-10-15] MEDS ORDERED: OCEAN104 ML ×2 (07:28→07:31)
--- NOTE | 2020-10-15 17:21 | NUR ---
Spoke with Dr Phoenix enriquez this AM and discussed case. Dr Garibay plans to discuss hospice with Pt tomorrow if labs do not improve. Spoke with Dr Cornell this AM. Dr Cornell reports having conversation with Pt regarding hospice and Pt is agreeable to hospice services. Dr Cornell would like Palliative Care to F/U to answers questions for Pt and family regarding hospice services. Pt resting in bed upon arrival. Pt's caregiver Luis Fernando at bedside. Pt has difficulty with hearing this RN and Luis Fernando relayse information. Listened as Pt states "lets pull the plug already". Provided gentle education regarding hospice philosophy. Discussed hospice agencies to choose from. Pt would like hospice agency that is available the soonest. Plan is for Pt to move in with her friend once D/C from hospital. Luis Fernando reports family is on board with Pt moving to friend's house with hospice. Continued therapeutic listening and answered questions. Luis Fernando states "I have a bad feeling that she might decide to pass away tonight". Answered questions regarding Pt's that become imminent before D/C from hospital. Luis Fernando expresses appreciation of visit and reports no other concerns at this time. Spoke with Bedside CHANDANA Choi and discussed case. Placed hospice referral with comments for preference of hospice agency that is available the soonest. Palliative Care will remain available.
--- NOTE | 2020-10-15 18:24 | NUR ---
SHIFT SUMMARY; A/A/OX4 THROUGHOUT SHIFT. SBA TO BEDSIDE COMMODE NEEDED DURING SHIFT. 2L 02 PLACED VIA NC PER DR. CURTIS FOR COMFORT DUE TO LOW BLOOD COUNT. NO ACUTE CHANGES DURING SHIFT. PT TO BE DC'D TOMMORROW ON HOSPICE. CAREGIVER FEDERICO AT BEDSIDE DURING EVENING. WILL CONTINUE TO MONITOR AND TREAT UNTIL CHANGE OF SHIFT.
--- NOTE | 2020-10-16 05:49 | NUR ---
SHIFT SUMMARY PT VOMITTED AT BEGINNING OF SHIFT. ZOFRAN GIVEN. PT ALERT AND ORIENTED X 4. SBA TO COMMODE. PT ABLE TO TURN SELF IN BED NEEDED. OXYGEN SATURATION MAINTAINED ABOVE 92% ON 2 L OF OXYGEN VIA NC. HR STABLE. BP STABLE. NO CP OR PRESSURE REPORTED. PT REPORTS PAIN T/O SHIFT. MEDICATIONS GIVEN PER EMAR. PT REPORTS RELIEF WITH THESE INTERVENTIONS. WILL CONTINUE TO MONITOR UNTIL REPORT GIVEN TO DAYSHIFT RN.
== END 2020-10-16 12:38 | disposition home or self-care (01) | DRG 808 ==
LOC: ER 19:29 → ICUW 19:30 → PCU 19:30 → ICUW 23:37 → PCU 10-08 18:26
PROVIDERS: Emergency Medicine; Family Medicine; Hospitalist; Internal Medicine Hematology & Oncology; Nurse Practitioner Acute Care; Pharmacist; ADMIT Internal Medicine
PROC: 30233N1 Transfusion of Nonautologous Red Blood Cells into Peripheral Vein, Percutaneous Approach (ICD-10-PCS; principal; 2020-10-03)
PROC: 30233R1 Transfusion of Nonautologous Platelets into Peripheral Vein, Percutaneous Approach (ICD-10-PCS; 2020-10-03)
PROC: 02HV33Z Insertion of Infusion Device into Superior Vena Cava, Percutaneous Approach (ICD-10-PCS; 2020-10-03)
DX: D61.818 Other pancytopenia (principal); J18.9 Pneumonia, unspecified organism; D75.81 Myelofibrosis; C91.10 Chronic lymphocytic leukemia of B-cell type not having achieved remission; Z66 Do not resuscitate; Z79.82 Long term (current) use of aspirin; J44.9 Chronic obstructive pulmonary disease, unspecified; N18.30 Chronic kidney disease, stage 3 unspecified; I12.9 Hypertensive chronic kidney disease with stage 1 through stage 4 chronic kidney disease, or unspecified chronic kidney disease; I25.10 Atherosclerotic heart disease of native coronary artery without angina pectoris; Z95.5 Presence of coronary angioplasty implant and graft; Z87.891 Personal history of nicotine dependence; E03.9 Hypothyroidism, unspecified; Z20.828 Contact with and (suspected) exposure to other viral communicable diseases; E78.5 Hyperlipidemia, unspecified; I95.9 Hypotension, unspecified; F32.9 Major depressive disorder, single episode, unspecified; R04.0 Epistaxis; E87.6 Hypokalemia; N32.81 Overactive bladder; D70.3 Neutropenia due to infection; D69.6 Thrombocytopenia, unspecified; R50.81 Fever presenting with conditions classified elsewhere
CPT/HCPCS: 0202U; 36415; 36430; 36569; 71045; 71260; 74177; 80048; 80053; 80069; 80202; 81001; 82272; 82565; 82607; 82728; 82746; 83010; 83540; 83550; 83605; 83615; 83735; 84145; 85025; 85027; 85045; 85055; 86850; 86900; 86901; 86923; 87040; 87086; 92610; 94640; 94760; 94762; 99285-25; A9270; A9270-GY; C1751; J0692; J0780; J2405; J3370; J7030; J7050; J7120; P9016; P9035; P9053; Q5110; Q9967